=== PATIENT | male | born 1960 | race Hispanic/Latino ===

== ENCOUNTER 2018-01-11 10:39 | Emergency (ER) | payer OTHER ==
[2018-01-11 10:50] VITALS: BMI 27.3
[2018-01-11 10:56] VITALS: TEMP 97.6
[2018-01-11 11:37] LABS: BASO # 0.01 K/mm3 (0.0-2.0); BASO % 0.3 % (0.0-3.0); EOS # 0.1 (0.0-0.7); GRAN # 1.95 (1.4-6.5); GRAN % 56.2 % (50.0-68.0); HEMOGLOBIN 14.2 g/dL (14.0-18.0); LYMPH # 1.1 (1.2-3.4); LYMPH % 31.4 % (22.0-35.0); MEAN CELL VOLUME 100.3 fl (80.0-105.0); MEAN CORPUSCULAR HEMOGLOBIN 36.1 pg (25.0-35.0); MEAN PLATELET VOLUME 10.1 fl (7.0-11.0); MONO # 0.3 (0.1-0.6); MONO % 8.1 % (1.0-6.0); RBC 3.93 10^6/uL (3.5-6.1); RED CELL DISTRIBUTION WIDTH 14.4 % (11.5-14.5); WHITE BLOOD COUNT 3.5 10^3/ul (4.5-11.0)
[2018-01-11 11:44] LABS: ALB/GLOB RATIO 1.1 (1.1-1.8); ALBUMIN 3.5 g/dL (3.0-4.8); ALT/SGPT 55 U/L (7-56); AST/SGOT 56 U/L (17-59); BLOOD UREA NITROGEN 17 mg/dL (7-21); CALCIUM 9.3 mg/dL (8.4-10.5); GFR AFRICAN-AMERICAN > 60; GFR NON-AFRICAN AMERICAN > 60
[2018-01-11 11:45] LABS: ACETAMINOPHEN < 10.0 ug/ml (10.0-20.0); SALICYLATE < 1 mg/dL (2.0-20.0)
--- NOTE | 2018-01-11 12:10 | ED PDOC ---
Arrival/HPI - General Chief Complaint: Psychiatric Evaluation Time Seen by Provider: 01/11/18 11:07 Historian: Patient - History of Present Illness Narrative History of Present Illness (Text): 01/11/18 11:20 A 58 year old male, whose past medical history includes schizophrenia, is brought in from [facility] for aggressive and combative behavior towards staff. Patient has no physical complaints at this time. Patient denies any fever, cough , or any other complaints. PMD: Dr. Flores Past Medical History - Provider Review Nursing Documentation Reviewed: Yes - Cardiac Hx Cardiac Disorders: No - Pulmonary Hx Respiratory Disorders: No - Neurological Hx Seizures: Yes Other/Comment: encephalopathy, altered - HEENT Hx HEENT Disorder: No - Renal Hx Renal Disorder: No - Endocrine/Metabolic Hx Endocrine Disorders: No - Hematological/Oncological Hx Blood Disorders: Yes Other/Comment: chronic hepatitis - Integumentary Hx Dermatological Disorder: No - Musculoskeletal/Rheumatological Hx Musculoskeletal Disorders: No - Gastrointestinal Hx Gastrointestinal Disorders: No - Genitourinary/Gynecological Hx Genitourinary Disorders: No - Psychiatric Hx Psychophysiologic Disorder: Yes Hx Depression: Yes Hx Substance Use: No Other/Comment: schizoaffective Family/Social History - Physician Review Nursing Documentation Reviewed: Yes Family/Social History: No Known Family HX Smoking Status: Never Smoked Hx Alcohol Use: No Hx Substance Use: No Allergies/Home Meds Allergies/Adverse Reactions: Allergies No Known Allergies Allergy (Verified 01/11/18 10:50) Review of Systems - Physician Review All systems were reviewed & negative as marked: Yes - Review of Systems Constitutional: absent: Fevers Respiratory: absent: Cough Physical Exam Vital Signs Reviewed: Yes Vital Signs Temp Pulse Resp BP Pulse Ox 01/11/18 19:13 74 18 114/76 96 01/11/18 19:12 78 18 114/76 97 01/11/18 14:40 64 18 99/50 L 91 L 01/11/18 10:50 97.6 F 89 19 136/74 94 L 01/11/18 10:40 97.6 F 89 19 136/74 94 L Temperature: Afebrile Blood Pressure: Normal Pulse: Regular Respiratory Rate: Normal Appearance: Positive for: Well-Appearing Pain Distress: None Mental Status: Positive for: Agitated, other (combative and aggressive) - Systems Exam Head: Present: Atraumatic, Normocephalic Pupils: Present: PERRL Extroacular Muscles: Present: EOMI Conjunctiva: Present: Normal Mouth: Present: Moist Mucous Membranes Neck: Present: Normal Range of Motion Respiratory/Chest: Present: Clear to Auscultation, Good Air Exchange. No: Respiratory Distress, Accessory Muscle Use Cardiovascular: Present: Regular Rate and Rhythm, Normal S1, S2. No: Murmurs Abdomen: Present: Normal Bowel Sounds. No: Tenderness, Distention, Peritoneal Signs Back: Present: Normal Inspection Upper Extremity: Present: Normal Inspection. No: Cyanosis, Edema Lower Extremity: Present: Normal Inspection. No: Edema Neurological: Present: GCS=15, CN II-XII Intact, Speech Normal Skin: Present: Warm, Dry, Normal Color. No: Rashes Psychiatric: Present: Agitated Medical Decision Making ED Course and Treatment: 01/11/18 11:24 Impression: 58 year old male brought in for aggressive and combative behavior. Plan: -- EKG -- Chest X-ray -- Labs -- Urine Culture -- Haldol -- Ativan -- Urinalysis -- Reassess and disposition Progress Notes: 01/11/2018 12:18 Chest X-ray IMPRESSION: No active disease. Dictator: Gopal Kirk MD 01/11/18 13:30 Patient has agreed to be admitted to [facility]. Patient is currently medically cleared. EKG: Ordered, reviewed, and independently interpreted the EKG. Rate : 68 BPM Rhythm : NSR Interpretation : No ST-segment elevations or depressions, no T-wave inversions, normal intervals. Comparison : No previous EKG for comparison. - Lab Interpretations Lab Results: 01/11/18 11:20 01/11/18 11:20 Lab Results 01/11/18 13:00: Urine Opiates Screen Negative, Urine Methadone Screen Negative, Ur Barbiturates Screen Negative, Ur Phencyclidine Scrn Negative, Ur Amphetamines Screen Negative, U Benzodiazepines Scrn Negative, U Oth Cocaine Metabols Negative, U Cannabinoids Screen Negative 01/11/18 13:00: Urine Color Yellow, Urine Appearance Clear, Urine pH 6.0, Ur Specific [place] 1.025, Urine Protein Negative, Urine Glucose (UA) Negative, Urine Ketones Trace H, Urine Blood Negative, Urine Nitrate Negative, Urine Bilirubin Negative, Urine Urobilinogen 2.0 H, Ur Leukocyte Esterase Negative 01/11/18 12:39: Ammonia 68 H 01/11/18 11:20: Alcohol, Quantitative < 10 01/11/18 11:20: Salicylates < 1 L, Acetaminophen < 10.0 L 01/11/18 11:20: Sodium 139, Potassium 3.9, Chloride 108 H, Carbon Dioxide 23, Anion Gap 13, BUN 17, Creatinine 0.5 L, Est GFR ( Amer) > 60, Est GFR ( Non-Af Amer) > 60, Random Glucose 85, Calcium 9.3, Total Bilirubin 1.5 H, AST 56 , ALT 55, Alkaline Phosphatase 101, Total Protein 6.8, Albumin 3.5, Globulin 3.3 , Albumin/Globulin Ratio 1.1 01/11/18 11:20: WBC 3.5 L, RBC 3.93, Hgb 14.2, Hct 39.4 L, MCV 100.3, MCH 36.1 H , MCHC 36.0, RDW 14.4, Plt Count 93 L, MPV 10.1, Gran % 56.2, Lymph % (Auto) 31.4, [place] % (Auto) 8.1 H, Eos % (Auto) 4.0, Baso % (Auto) 0.3, Gran # 1.95, Lymph # (Auto) 1.1 L, [place] # (Auto) 0.3, Eos # (Auto) 0.1, Baso # (Auto) 0.01 I have reviewed the lab results: Yes - RAD Interpretation Radiology Orders: 01/11/18 11:24 CHEST PORTABLE [RAD] Stat - Medication Orders Current Medication Orders: Discontinued Medications Haloperidol Lactate (Haldol) 2.5 mg IM STAT STA PRN Reason: Protocol Stop: 01/11/18 11:53 Last Admin: 01/11/18 12:06 Dose: 2.5 mg IM Administration Charges Document 01/11/18 12:06 SRE (Rec: 01/11/18 12:06 SRE [id number]) Injection Site MAR Injection Site Left Deltoid Charges for Administration # of IM Administrations 1 Haloperidol Lactate (Haldol) 2.5 mg IM STAT STA PRN Reason: Protocol Stop: 01/11/18 12:19 Last Admin: 01/11/18 12:26 Dose: 2.5 mg IM Administration Charges Document 01/11/18 12:26 SRE (Rec: 01/11/18 12:26 SRE [id number]) Injection Site MAR Injection Site Right Gluteus Geovanny Charges for Administration # of IM Administrations 1 Lorazepam (Ativan) 2 mg IM STAT STA PRN Reason: Protocol Stop: 01/11/18 12:19 Last Admin: 01/11/18 12:26 Dose: 2 mg IM Administration Charges Document 01/11/18 12:26 SRE (Rec: 01/11/18 12:26 SRE [id number]) Injection Site MAR Injection Site Right Deltoid Charges for Administration # of IM Administrations 1 - Transfer of Care Patient signed out to Dr:: Kori Other: awaiting [facility] screening - Scribe Statement The provider has reviewed the documentation as recorded by the Jordonibjaziel Neville Provider Scribe Attestation: All medical record entries made by the Scribe were at my direction and personally dictated by me. I have reviewed the chart and agree that the record accurately reflects my personal performance of the history, physical exam, medical decision making, and the department course for this patient. I have also personally directed, reviewed, and agree with the discharge instructions and disposition. Disposition/Present on Arrival - Present on Arrival Any Indicators Present on Arrival: No History of DVT/PE: No History of Uncontrolled Diabetes: No Urinary Catheter: No History of Decub. Ulcer: No History Surgical Site Infection Following: None - Disposition Have Diagnosis and Disposition been Completed?: Yes Diagnosis: Schizophrenia Disposition Time: 23:00 Condition: STABLE Referrals: Glenn Flores DO [Primary Care Provider] - Follow up with primary Forms: [employer] (Khmer)
--- NOTE | 2018-01-11 12:20 | RAD ---
HISTORY: r/o infiltrate COMPARISON: No prior. FINDINGS: LUNGS: No active pulmonary disease. PLEURA: No significant pleural effusion identified, no pneumothorax apparent. CARDIOVASCULAR: Normal. OSSEOUS STRUCTURES: No significant abnormalities. VISUALIZED UPPER ABDOMEN: Normal. OTHER FINDINGS: None. IMPRESSION: No active disease.
[2018-01-11 13:22] LABS: URINE BILIRUBIN NEGATIVE (NEGATIVE); URINE BLOOD NEGATIVE (NEGATIVE); URINE GLUCOSE (UA) NEGATIVE (NEGATIVE); URINE LEUKOCYTE ESTERASE NEGATIVE Leu/uL (NEGATIVE); URINE PROTEIN NEGATIVE mg/dL (<30 mg/dL)
[2018-01-11 13:23] LABS: URINE APPEARANCE CLEAR (CLEAR); URINE COLOR YELLOW (YELLOW)
[2018-01-11 13:42] LABS: BENZODIAZEPINES, UR NEGATIVE (NEGATIVE)
[2018-01-11 13:51] LABS: BARBITURATES, UR NEGATIVE (NEGATIVE); OPIATES, UR NEGATIVE (NEGATIVE); PHENCYCLIDINE, UR NEGATIVE (NEGATIVE)
--- NOTE | 2018-01-12 01:19 | ED PDOC ---
Physical Exam - Physical Exam Narrative Physical Exam (Text): Patient re-evaluated by PES and [facility] screener, deemed safe for discharge back to [place]. Vital Signs Reviewed: Yes Vital Signs Temp Pulse Resp BP Pulse Ox 01/12/18 04:40 76 19 127/70 97 01/12/18 02:46 80 18 120/85 99 01/11/18 19:13 74 18 114/76 96 01/11/18 19:12 78 18 114/76 97 01/11/18 14:40 64 18 99/50 L 91 L 01/11/18 10:50 97.6 F 89 19 136/74 94 L 01/11/18 10:40 97.6 F 89 19 136/74 94 L Temperature: Afebrile Blood Pressure: Normal Pulse: Regular Respiratory Rate: Normal Appearance: Positive for: Well-Appearing, Non-Toxic, Comfortable Pain Distress: None Mental Status: Positive for: Alert and Oriented X 3 Medical Decision Making ED Course and Treatment: 01/11/18 10:40: Patient endorsed to me by Dr. Christianson. Pending PES reevaluation, reassessment and disposition: 01/12/18 01:18: PES reevaluated patient. - Lab Interpretations Lab Results: 01/11/18 11:20 01/11/18 11:20 Lab Results 01/11/18 13:00: Urine Opiates Screen Negative, Urine Methadone Screen Negative, Ur Barbiturates Screen Negative, Ur Phencyclidine Scrn Negative, Ur Amphetamines Screen Negative, U Benzodiazepines Scrn Negative, U Oth Cocaine Metabols Negative, U Cannabinoids Screen Negative 01/11/18 13:00: Urine Color Yellow, Urine Appearance Clear, Urine pH 6.0, Ur Specific [place] 1.025, Urine Protein Negative, Urine Glucose (UA) Negative, Urine Ketones Trace H, Urine Blood Negative, Urine Nitrate Negative, Urine Bilirubin Negative, Urine Urobilinogen 2.0 H, Ur Leukocyte Esterase Negative 01/11/18 12:39: Ammonia 68 H 01/11/18 11:20: Alcohol, Quantitative < 10 01/11/18 11:20: Salicylates < 1 L, Acetaminophen < 10.0 L 01/11/18 11:20: Sodium 139, Potassium 3.9, Chloride 108 H, Carbon Dioxide 23, Anion Gap 13, BUN 17, Creatinine 0.5 L, Est GFR ( Amer) > 60, Est GFR ( Non-Af Amer) > 60, Random Glucose 85, Calcium 9.3, Total Bilirubin 1.5 H, AST 56 , ALT 55, Alkaline Phosphatase 101, Total Protein 6.8, Albumin 3.5, Globulin 3.3 , Albumin/Globulin Ratio 1.1 01/11/18 11:20: WBC 3.5 L, RBC 3.93, Hgb 14.2, Hct 39.4 L, MCV 100.3, MCH 36.1 H , MCHC 36.0, RDW 14.4, Plt Count 93 L, MPV 10.1, Gran % 56.2, Lymph % (Auto) 31.4, [place] % (Auto) 8.1 H, Eos % (Auto) 4.0, Baso % (Auto) 0.3, Gran # 1.95, Lymph # (Auto) 1.1 L, [place] # (Auto) 0.3, Eos # (Auto) 0.1, Baso # (Auto) 0.01 - RAD Interpretation Radiology Orders: 01/11/18 11:24 CHEST PORTABLE [RAD] Stat - Medication Orders Current Medication Orders: Discontinued Medications Haloperidol Lactate (Haldol) 2.5 mg IM STAT STA PRN Reason: Protocol Stop: 01/11/18 11:53 Last Admin: 01/11/18 12:06 Dose: 2.5 mg IM Administration Charges Document 01/11/18 12:06 SRE (Rec: 01/11/18 12:06 SRE [id number]) Injection Site MAR Injection Site Left Deltoid Charges for Administration # of IM Administrations 1 Haloperidol Lactate (Haldol) 2.5 mg IM STAT STA PRN Reason: Protocol Stop: 01/11/18 12:19 Last Admin: 01/11/18 12:26 Dose: 2.5 mg IM Administration Charges Document 01/11/18 12:26 SRE (Rec: 01/11/18 12:26 SRE [id number]) Injection Site MAR Injection Site Right Gluteus Geovanny Charges for Administration # of IM Administrations 1 Lorazepam (Ativan) 2 mg IM STAT STA PRN Reason: Protocol Stop: 01/11/18 12:19 Last Admin: 01/11/18 12:26 Dose: 2 mg IM Administration Charges Document 01/11/18 12:26 SRE (Rec: 01/11/18 12:26 SRE [id number]) Injection Site MAR Injection Site Right Deltoid Charges for Administration # of IM Administrations 1 - Scribe Statement The provider has reviewed the documentation as recorded by the Scribe Kim Saeed Provider Scribe Attestation: All medical record entries made by the Scribe were at my direction and personally dictated by me. I have reviewed the chart and agree that the record accurately reflects my personal performance of the history, physical exam, medical decision making, and the department course for this patient. I have also personally directed, reviewed, and agree with the discharge instructions and disposition. Disposition/Present on Arrival - Present on Arrival Any Indicators Present on Arrival: No History of DVT/PE: No History of Uncontrolled Diabetes: No Urinary Catheter: No History of Decub. Ulcer: No History Surgical Site Infection Following: None - Disposition Have Diagnosis and Disposition been Completed?: Yes Diagnosis: Schizophrenia Disposition: TRANSF TO SNF Disposition Time: 04:40 Patient Plan: Discharge Condition: STABLE Referrals: Glenn Flores DO [Primary Care Provider] - Follow up with primary Forms: [employer] (Italian)
[2018-01-12 04:50] VITALS: BP 127/70; PULSE 76; RESP 19; O2SAT 97
--- NOTE | 2018-01-12 10:27 | CARD ---
APPROVED REPORT EKG Measurement Heart [id number] [id number] <Conclusion> Normal sinus rhythm Normal ECG
== END 2018-01-12 04:40 ==
LOC: ED 10:39 → MERGE 10:39 → ED 01-12 04:40
DX: F20.9 Schizophrenia, unspecified (principal)
CPT/HCPCS: 71045; 80053; 80320; 80324; 80329; 80345; 80346; 80349; 80353; 80358; 80361; 81003; 82140; 83992; 85025; 87086; 90791; 93005; 96372; 99285; J1630; J2060

== ENCOUNTER 2018-01-16 11:13 | Inpatient (IN) | payer MEDICAID, OTHER ==
[2018-01-16 11:15] VITALS: BMI 27.3
--- NOTE | 2018-01-16 11:55 | ED PDOC ---
Arrival/HPI - General Chief Complaint: Psychiatric Evaluation Time Seen by Provider: 01/16/18 11:50 Historian: Patient, EMS - History of Present Illness Narrative History of Present Illness (Text): 01/16/18 11:52 pt p/w + anger reaction while at [facility]? today, prior to ED arrival; pt was breaking dishes/throwing thing; pt states he was not trying to hurt anyone, pt states he was angry that his coffee was cold and he wasnt been taking care of while at the [facility]; pt states no fever/chills/sweats, no cp/ sob/palpitations, no abd pain, no n/v, no numbness/tingling, no urinary/bowel changes, no rashes, no gross bleeding, no fall/trauma/sick contact, no travel; pt is here for further eval; pt's without other complaints. pt denied SI/HI, pt denied hallucinations - visual/tactile/auditory Time/Duration: Prior to Arrival Symptom Onset: Sudden Symptom Course: Improving Context: Home Past Medical History - Provider Review Nursing Documentation Reviewed: Yes - Travel History Have you recently traveled outside [place] w/in the past 3 mons?: No - Past History Past History: No Previous - Infectious Disease Hx of Infectious Diseases: None - Cardiac Hx Cardiac Disorders: Yes Hx Hypertension: Yes - Pulmonary Hx Respiratory Disorders: Yes Hx Chronic Obstructive Pulmonary Disease (COPD): Yes - Neurological Hx Neurological Disorder: Yes Hx Seizures: Yes Other/Comment: ENCEPALOPATHY, AMS - HEENT Hx HEENT Disorder: No - Renal Hx Renal Disorder: No - Endocrine/Metabolic Hx Endocrine Disorders: No - Hematological/Oncological Hx Blood Disorders: Yes Other/Comment: HEPATITIS - Integumentary Hx Dermatological Disorder: No - Musculoskeletal/Rheumatological Hx Musculoskeletal Disorders: Yes Hx Fractures: Yes (L leg) - Gastrointestinal Hx Gastrointestinal Disorders: No - Genitourinary/Gynecological Hx Genitourinary Disorders: No - Psychiatric Hx Psychophysiologic Disorder: Yes Hx Depression: Yes Hx Substance Use: No Other/Comment: SCHIZOAFFECTIVE - Surgical History Hx Orthopedic Surgery: Yes (L leg) - Anesthesia Hx Anesthesia: Yes Family/Social History - Physician Review Nursing Documentation Reviewed: Yes Family/Social History: No Known Family HX Smoking Status: Heavy Smoker > 10 Cigarettes Daily Hx Alcohol Use: No Hx Substance Use: No Hx Substance Use Treatment: No Allergies/Home Meds Allergies/Adverse Reactions: Allergies No Known Allergies Allergy (Unverified 01/16/18 11:18) Home Medications: Home Meds Medication Instructions Recorded Confirmed Acetaminophen [Tylenol 325mg tab] 325 mg PO Q4 PRN 01/02/18 01/16/18 OXcarbazepine [Trileptal] 300 mg PO BID 01/02/18 01/16/18 QUEtiapine [SEROquel] 200 mg PO HS 01/02/18 01/02/18 Sertraline [Zoloft] 50 mg PO DAILY 01/02/18 01/16/18 levETIRAcetam [Keppra] 500 mg PO BID 01/02/18 01/16/18 traZODone [trazODONE HYDROCHLORIDE] 50 mg PO HS 01/02/18 01/16/18 Bisacodyl [Dulcolax] 10 mg PA PRN PRN 01/16/18 01/16/18 Lactulose 30 ml PO DAILY PRN 01/16/18 01/16/18 QUEtiapine [Seroquel] 100 mg PO DAILY 01/16/18 01/16/18 Rifaximin [Xifaxan] 550 mg PO BID 01/16/18 01/16/18 Review of Systems - Review of Systems Constitutional: Normal Eyes: Normal ENT: Normal Respiratory: Normal Cardiovascular: Normal Gastrointestinal: Normal Genitourinary Male: Normal Musculoskeletal: Normal Skin: Normal Neurological: Normal Endocrine: Normal Hemo/Lymphatic: Normal Psychiatric: Normal Physical Exam Vital Signs Reviewed: Yes Vital Signs Temp Pulse Resp BP Pulse Ox 01/16/18 11:30 98 F 68 18 105/64 97 Temperature: Afebrile Blood Pressure: Normal Pulse: Regular Respiratory Rate: Normal Appearance: Positive for: Well-Appearing, Non-Toxic, Uncomfortable, Other (well nourished male, comfortable, NAD, cooperative, alert/awake, GCS = 15, oriented x 2 (not to date/time), follows command with ease) Pain Distress: None Mental Status: Positive for: other (alert and awake, oriented x 2 (not to date/ time)) - Systems Exam Head: Present: Atraumatic, Normocephalic, Other (mild bi-temporal wasting) Pupils: Present: PERRL, Other (no nystagmus, no photophobia, sclera anicteric, visual field intact b/l) Extroacular Muscles: Present: EOMI Conjunctiva: Present: Normal Ears: Present: Normal Mouth: Present: Moist Mucous Membranes, Other (poor dentitions, no drooling/ stridor, no exudate/lesions) Pharnyx: Present: Normal Nose (External): Present: Atraumatic Nose (Internal): Present: Normal Inspection Neck: Present: Normal Range of Motion, Trachea Midline, Other (intact ROM, no midline tenderness, no nuchal rigidity, no menigneal signs). No: MIDLINE TENDERNESS Respiratory/Chest: Present: Clear to Auscultation, Good Air Exchange, Other ( CTA b/l, no w/r/r, no tachypenia, no accessory muscle use noted; coarse breath sounds bibasiliar). No: Respiratory Distress, Accessory Muscle Use Cardiovascular: Present: Regular Rate and Rhythm, Normal S1, S2. No: Murmurs Abdomen: Present: Normal Bowel Sounds, Other (well nourished male, no focal tenderness, no masses/rebound/guarding/rigidity, no cummins's sign, no mcburney' s point tenderness). No: Tenderness, Distention Back: Present: Normal Inspection. No: CVA Tenderness, Midline Tenderness Upper Extremity: Present: Normal Inspection, Normal ROM, NORMAL PULSES, Neurovascularly Intact, Capillary Refill < 2s Lower Extremity: Present: Normal Inspection, NORMAL PULSES, Normal ROM, Capillary Refill < 2 s Neurological: Present: GCS=15, CN II-XII Intact, Speech Normal, Other (no facial asymmetries, no new slurr speech) Skin: Present: Warm, Normal Color, Other (cap refill ~ 1sec, no ulcerations, no petechiae, no rashes) Psychiatric: Present: Alert Medical Decision Making ED Course and Treatment: 01/16/18 11:58 Impression: anger reaction, r/o psych d/o i have consider all the differential diagnosis regarding pt's chief medical complaints/clinical findings, including but are not limited to: anger reaction? A/P: anger reaction - labs - xray - PES eval - observe - supportive care 01/16/18 12:44 pt is currently comfortable, NAD pt remained no SI/HI, no hallucinations pt IS MEDICALLY CLEARED FOR PSYCH/PES EVAL Re-evaluation Time: 12:44 Reassessment Condition: Improved - Lab Interpretations Lab Results: 01/16/18 12:00 01/16/18 12:00 Lab Results 01/16/18 12:30: Urine Opiates Screen Negative, Urine Methadone Screen Negative, Ur Barbiturates Screen Negative, Ur Phencyclidine Scrn Negative, Ur Amphetamines Screen Negative, U Benzodiazepines Scrn Negative, U Oth Cocaine Metabols Negative, U Cannabinoids Screen Negative 01/16/18 12:30: Urine Color Yellow, Urine Appearance Clear, Urine pH 6.5, Ur Specific [place] 1.015, Urine Protein Negative, Urine Glucose (UA) Negative, Urine Ketones Negative, Urine Blood Negative, Urine Nitrate Negative, Urine Bilirubin Negative, Urine Urobilinogen 4.0 H, Ur Leukocyte Esterase Negative 01/16/18 12:00: Alcohol, Quantitative < 10 01/16/18 12:00: Salicylates < 1 L, Acetaminophen < 10.0 L 01/16/18 12:00: Sodium 143, Potassium 3.7, Chloride 110 H, Carbon Dioxide 26, Anion Gap 11, BUN 11, Creatinine 0.5 L, Est GFR ( Amer) > 60, Est GFR ( Non-Af Amer) > 60, Random Glucose 81, Calcium 8.9, Total Bilirubin 1.3, AST 50, ALT 49, Alkaline Phosphatase 90, Total Protein 5.6 L, Albumin 2.9 L, Globulin 2.7, Albumin/Globulin Ratio 1.0 L 01/16/18 12:00: WBC 4.0 L, RBC 3.41 L, Hgb 12.4 L, Hct 34.1 L, MCV 100.0, MCH 36.4 H, MCHC 36.4, RDW 14.2, Plt Count 96 L, MPV 10.5, Gran % 48.6 L, Lymph % ( Auto) 36.6 H, [place] % (Auto) 11.4 H, Eos % (Auto) 3.2, Baso % (Auto) 0.2, Gran # 1.96, Lymph # (Auto) 1.5, [place] # (Auto) 0.5, Eos # (Auto) 0.1, Baso # (Auto) 0.01 I have reviewed the lab results: Yes Interpretation: All labs normal - RAD Interpretation Narrative RAD Interpretations (Text): 01/16/18 13:27 HISTORY: Medical clearance. COMPARISON: 01/11/2018 FINDINGS: LUNGS: No active pulmonary disease. PLEURA: No significant pleural effusion identified, no pneumothorax apparent. CARDIOVASCULAR: No radiographic findings to suggest acute or significant cardiovascular disease. OSSEOUS STRUCTURES: No significant abnormalities. VISUALIZED UPPER ABDOMEN: Normal. OTHER FINDINGS: None. IMPRESSION: No active disease. No significant interval change compared to the prior examination(s). Radiology Orders: 01/16/18 11:51 CHEST PORTABLE [RAD] Stat 01/16/18 12:22 Chest X-ray Creator : Yogesh Ward MD IMPRESSION: No active disease. No significant interval change compared to the prior examination(s). Health Science Specialist: Radiologist - EKG Interpretation EKG Interpretation (Text): 01/16/18 12:45 NSR at 65 bpm, normal axis, no ectopy, no st-t changes, NORMAL EKG; unchanged compare with old ekg 12/3017 Interpreted by ED Physician: Yes Type: 12 lead EKG Comparison: Similar to previous EKG Disposition/Present on Arrival - Present on Arrival Any Indicators Present on Arrival: No History of DVT/PE: No History of Uncontrolled Diabetes: No Urinary Catheter: No History of Decub. Ulcer: No History Surgical Site Infection Following: None - Disposition Have Diagnosis and Disposition been Completed?: Yes Diagnosis: Schizoaffective disorder, Anger reaction Disposition: HOSPITALIZED Disposition Time: 13:28 Patient Plan: Admission Condition: STABLE Referrals: Glenn Flores DO [Primary Care Provider] - Follow up with primary Forms: [employer] (Mexican)
[2018-01-16 12:19] LABS: BASO # 0.01 K/mm3 (0.0-2.0); BASO % 0.2 % (0.0-3.0); EOS # 0.1 (0.0-0.7); EOS % 3.2 % (1.5-5.0); GRAN # 1.96 (1.4-6.5); GRAN % 48.6 % (50.0-68.0); HEMOGLOBIN 12.4 g/dL (14.0-18.0); LYMPH # 1.5 (1.2-3.4); LYMPH % 36.6 % (22.0-35.0); MEAN CORPUSCULAR HEMOGLOBIN 36.4 pg (25.0-35.0); MEAN CORPUSCULAR HGB CONC 36.4 g/dl (31.0-37.0); MEAN PLATELET VOLUME 10.5 fl (7.0-11.0); MONO # 0.5 (0.1-0.6); MONO % 11.4 % (1.0-6.0); RBC 3.41 10^6/uL (3.5-6.1); RED CELL DISTRIBUTION WIDTH 14.2 % (11.5-14.5)
--- NOTE | 2018-01-16 12:20 | RAD ---
HISTORY: Medical clearance. COMPARISON: 01/11/2018 FINDINGS: LUNGS: No active pulmonary disease. PLEURA: No significant pleural effusion identified, no pneumothorax apparent. CARDIOVASCULAR: No radiographic findings to suggest acute or significant cardiovascular disease. OSSEOUS STRUCTURES: No significant abnormalities. VISUALIZED UPPER ABDOMEN: Normal. OTHER FINDINGS: None. IMPRESSION: No active disease. No significant interval change compared to the prior examination(s).
[2018-01-16 12:23] LABS: ACETAMINOPHEN < 10.0 ug/ml (10.0-20.0); SALICYLATE < 1 mg/dL (2.0-20.0)
[2018-01-16 12:24] LABS: ALBUMIN 2.9 g/dL (3.0-4.8); ALT/SGPT 49 U/L (7-56); AST/SGOT 50 U/L (17-59); BLOOD UREA NITROGEN 11 mg/dL (7-21); CALCIUM 8.9 mg/dL (8.4-10.5); GFR AFRICAN-AMERICAN > 60; GFR NON-AFRICAN AMERICAN > 60
[2018-01-16 12:45] LABS: PH,URINE 6.5 (4.7-8.0); URINE APPEARANCE CLEAR (CLEAR); URINE BILIRUBIN NEGATIVE (NEGATIVE); URINE BLOOD NEGATIVE (NEGATIVE); URINE COLOR YELLOW (YELLOW); URINE GLUCOSE (UA) NEGATIVE (NEGATIVE); URINE LEUKOCYTE ESTERASE NEGATIVE Leu/uL (NEGATIVE); URINE PROTEIN NEGATIVE mg/dL (<30 mg/dL)
[2018-01-16 12:57] LABS: BENZODIAZEPINES, UR NEGATIVE (NEGATIVE)
[2018-01-16 13:13] LABS: BARBITURATES, UR NEGATIVE (NEGATIVE); OPIATES, UR NEGATIVE (NEGATIVE); PHENCYCLIDINE, UR NEGATIVE (NEGATIVE)
[2018-01-16] MEDS ORDERED: Alum-Mag Hydrox-Simethicone Susp (30 mL) PO PRN (15:03)
[2018-01-16] MEDS ORDERED: Magnesium Hydroxide Susp 30 ml UD PO PRN (15:03)
[2018-01-16 17:04] VITALS: O2SAT 96
--- NOTE | 2018-01-16 17:19 | CARD ---
APPROVED REPORT EKG Measurement Heart [id number] <Conclusion> Normal sinus rhythm Normal ECG
[2018-01-16] MEDS: Divalproex 250 mg DR (BID formulation) PO SCH (17:44)
[2018-01-17 07:56] LABS: GLUCOSE,FASTING 75 mg/dL (65-110); HDL CHOLESTEROL 50 mg/dL (29-60)
[2018-01-17 08:07] LABS: LDL CHOLESTEROL 33 mg/dL (0-129)
[2018-01-17 08:12] LABS: FREE T4 0.85 ng/dL (0.78-2.19)
[2018-01-17] MEDS ORDERED: Divalproex 250 mg DR (BID formulation) PO STA (12:52)
--- NOTE | 2018-01-17 13:19 | PCM.PSYCH ---
Initial Psychiatric Evaluation - Initial Psychiatric Evaluation Type of Admission: Voluntary Legal Status: Capacity (Patient has capacity to sign consent for tx) Chief Complaint (in patient's own words): "he said f...k you and f...k your mother and f...k your father, I was agitated...." "they have to do what I said them to do" Patient's Reaction to Hospitalization: [place] was [place] the [place] for evaluation of disinhibited behavior, inappropriate sexual behavior in [place], agitation, poor impulse control. History of Present Illness and Precipitating Events: Shortly pt is 58yo male with reported h/o schizoaffective disorder, denied previous psychiatric admissions, denied h/o suicidal attempts, pt was transferred from the [facility] for evaluation of agitated, aggressive, inappropriate behavior, pt was sexually disinhibited, was trying to kiss other consumers with no permission, was making sexual remarks, was breaking things, was not manageable in the [place]. pt requires meds adjustment, observation. pt was seen and examined today at the tx team meeting room with therapist. as per report pt was making sexual remarks and using profanities, pt also was making racial remarks. 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 pt presented with acceptable personal hygiene, fair ADLs, walks independently. pt was oriented in self, date, but was not aware of the name of the hospital, but aware that he is in the hospital. pt obviously has difficulties to concentrate and stay focused, when was asked what brought pt to the hospital pt said "I was agitated, another kimberly said that f...k you and f...k your mother and f...k your father!", pt then said "I wanted to kill him", when pt was asked when it happened pt replied "5years ago", pt was not able to answer how it is related to the question he was asked. pt also was making sexual and racist remarks, but as per staff pt did not have any agitation or aggression. pt denied v/a/t hallucinations, but pt is guarded. pt denied feeling depressed, denied thoughts of harming self or others. pt reported to have traumatic events in the past "I was in nursing home so many times, too many to count". pt denied any flashbacks, reliving of situation. pt was grandiose, manic, sexually preoccupied. Past psych h/o: Pt. [facility] in psych. [facility] Dr. Aranda. No recent changes or adjustments in medications per [facility]. Pt. did not get a psych eval or see psychiatrist this week either. Pt. is a sub acute resident. 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 will be accepted back to the facility after speaking to DO Brittany from [facility]. Prior to [facility] admission pt. was homeless and referred by [facility]. Medical h/o: chronic hepatitis, htn, encephalopathy and seizure d/o. pt reported smoking 3-4 cigarettes, counseling provided, pt requested to be on nicotine patch. Family h/o: pt is not aware. 01/16/18 12:00 01/16/18 12:00 Lab Results 01/17/18 07:00: Free T4 0.85, TSH 3rd Generation 0.65 01/17/18 07:00: Fasting Glucose 75, Triglycerides 30 L, Cholesterol 96 L, LDL Cholesterol Direct 33, HDL Cholesterol 50 01/16/18 12:30: Urine Opiates Screen Negative, Urine Methadone Screen Negative, Ur Barbiturates Screen Negative, Ur Phencyclidine Scrn Negative, Ur Amphetamines Screen Negative, U Benzodiazepines Scrn Negative, U Oth Cocaine Metabols Negative, U Cannabinoids Screen Negative 01/16/18 12:30: Urine Color Yellow, Urine Appearance Clear, Urine pH 6.5, Ur Specific [place] 1.015, Urine Protein Negative, Urine Glucose (UA) Negative, Urine Ketones Negative, Urine Blood Negative, Urine Nitrate Negative, Urine Bilirubin Negative, Urine Urobilinogen 4.0 H, Ur Leukocyte Esterase Negative 01/16/18 12:00: Alcohol, Quantitative < 10 01/16/18 12:00: Salicylates < 1 L, Acetaminophen < 10.0 L 01/16/18 12:00: Sodium 143, Potassium 3.7, Chloride 110 H, Carbon Dioxide 26, Anion Gap 11, BUN 11, Creatinine 0.5 L, Est GFR ( Amer) > 60, Est GFR ( Non-Af Amer) > 60, Random Glucose 81, Calcium 8.9, Total Bilirubin 1.3, AST 50, ALT 49, Alkaline Phosphatase 90, Total Protein 5.6 L, Albumin 2.9 L, Globulin 2.7, Albumin/Globulin Ratio 1.0 L 01/16/18 12:00: WBC 4.0 L, RBC 3.41 L, Hgb 12.4 L, Hct 34.1 L, MCV 100.0, MCH 36.4 H, MCHC 36.4, RDW 14.2, Plt Count 96 L, MPV 10.5, Gran % 48.6 L, Lymph % ( Auto) 36.6 H, [place] % (Auto) 11.4 H, Eos % (Auto) 3.2, Baso % (Auto) 0.2, Gran # 1.96, Lymph # (Auto) 1.5, [place] # (Auto) 0.5, Eos # (Auto) 0.1, Baso # (Auto) 0.01 Vital Signs Temp Pulse Resp BP Pulse Ox 01/17/18 07:29 97.5 F L 63 20 104/68 01/16/18 16:00 98.1 F 69 16 118/71 96 01/16/18 14:17 98 F 60 18 110/60 98 01/16/18 13:00 64 16 110/65 98 01/16/18 11:30 98 F 68 18 105/64 97 Current Medications: Active Medications Generic Name Dose Route Start Last Admin Trade Name Freq PRN Reason Stop Dose Admin Acetaminophen 650 mg 01/16/18 15:03 Tylenol 325mg Tab PO Q4 PRN Pain, Mild (1-3) Al Hydrox/Mg Hydrox/Simethicone 30 ml 01/16/18 15:03 Maalox Plus 30 Ml PO DAILY PRN Upset Stomach Alprazolam 0.5 mg 01/16/18 18:01 01/17/18 10:54 Xanax PO 0.5 mg TID CAROL Administration Protocol Divalproex Sodium 500 mg 01/17/18 22:00 Jana Baig(*Bid*) PO HS CAROL Divalproex Sodium 250 mg 01/18/18 08:00 Jana Baig (*Bid*) PO DAILY CAROL Protocol Lactulose 10 gm 01/16/18 16:49 Enulose PO DAILY PRN Constipation Levetiracetam 500 mg 01/16/18 17:00 01/17/18 10:54 Keppra PO 500 mg BID CAROL Administration Lorazepam 1 mg 01/16/18 17:02 Ativan IM TID PRN Anxiety Protocol Magnesium Hydroxide 30 ml 01/16/18 15:03 Milk Of Magnesia PO DAILY PRN Constipation Oxcarbazepine 300 mg 01/16/18 17:00 01/17/18 10:54 Trileptal PO 300 mg BID CAROL Administration Protocol Quetiapine Fumarate 300 mg 01/17/18 22:00 Seroquel PO HS CAROL Protocol Quetiapine Fumarate 200 mg 01/18/18 08:00 Seroquel PO DAILY CAROL Protocol Rifaximin 550 mg 01/17/18 08:00 Xifaxan PO BID CAROL Protocol Trazodone HCl 50 mg 01/16/18 22:00 01/16/18 22:22 Desyrel PO 50 mg HS CAROL Administration Ziprasidone 10 mg 01/16/18 17:02 Geodon Inj IM BID PRN Agitation Protocol pt missed am dose of meds stat doses given Past Psychiatric History - Past Psychiatric History Previous Treatment History: None Prior Professional Help: see HPI Prior Psychiatric Treatment: see HPI At what hospital: see HPI Duration: see HPI Nature of Treatment: see HPI Explanation of prior treatment: see HPI History of Abuse: see HPI when pt was incarcerated History of ETOH/Drug Use: see HPI History of Family Illness: see HPI Pertinent Medical Hx (Current Medical&Sleep Prob, Allergies): Allergies Allergy/AdvReac Type Severity Reaction Status Date / Time No Known Allergies Allergy Verified 01/16/18 17:09 Acetaminophen [Tylenol 325mg tab] 325 mg PO Q4 PRN 01/02/18 OXcarbazepine [Trileptal] 300 mg PO BID 01/02/18 QUEtiapine [SEROquel] 200 mg PO HS 01/02/18 Sertraline [Zoloft] 50 mg PO DAILY 01/02/18 levETIRAcetam [Keppra] 500 mg PO BID 01/02/18 traZODone [trazODONE HYDROCHLORIDE] 50 mg PO HS 01/02/18 Bisacodyl [Dulcolax] 10 mg RI PRN PRN 01/16/18 Lactulose 30 ml PO DAILY PRN 01/16/18 QUEtiapine [Seroquel] 100 mg PO DAILY 01/16/18 Rifaximin [Xifaxan] 550 mg PO BID 01/16/18 Review of Systems - Review of Systems Systems not reviewed;Unavailable: Acuity of Condition - EENT Eyes: As Per HPI Ears: As Per HPI Nose/Mouth/Throat: As Per HPI - Cardiovascular Cardiovascular: As Per HPI - Respiratory Respiratory: As Per HPI - Gastrointestinal Gastrointestinal: As Per HPI - Genitourinary Genitourinary: As Per HPI - Reproductive: Male Reproductive:Male: As Per HPI - Musculoskeletal Musculoskeletal: As Par HPI - Integumentary Integumentary: As Per HPI - Neurological Neurological: As Per HPI - Psychiatric Psychiatric: As Per HPI - Endocrine Endocrine: As Per HPI - Hematologic/Lymphatic Hematologic: As Per HPI Mental Status Examination - Personal Presentation Personal Presentation: Looks older than stated age - Affect Affect: Flat (and irritable) - Motor Activity Motor Activity: Calm - Reliability in Providing Information Reliability in Providing Information: Poor, due to alteration in thoughts, Poor , due to altered mood, Poor, due to cognitve impairment - Speech Speech: Disorganized, Tangential - Mood Mood: Other ("I am fine") - Formal Thought Process Formal Thought Process: Delusions (of grandor) - Hallucinations/Delusions Delusions: Persecution - Obsessions/Compulsions Obsessions: None Compulsions: None - Cognitive Functions Orientation: Person, Situation, Time Sensorium: Alert Attention/Concentration: Easily distracted Estimate of Intelligence: Average Judgement: Intact, as evidence by: Insight regarding need for hospitalization - Risk Risk: Elopement, Self-mutilation, Diminished functioning - Strength & Assets Inventory Strength & Assets Inventory: Cooperative, Other (no h/o suicidal attempts) - Limitations Limitations: Other (pt was homeless, h/o mental illness. ) DSM 5 DX - DSM 5 DSM 5 Diagnosis: as per h/o schizoaffective disorder (most likely bipolar type) r/o frontotemporal dementia - Recommended/Plan of Treatment Treatment Recommendations and Plan of Treatment: milieu/structure/supportive therapy OXcarbazepine [Trileptal] 300 mg PO BID will be continued QUEtiapine [SEROquel] 100mg po am and 200 mg PO HS for psychosis and mood stabilization Sertraline will be d/c levETIRAcetam [Keppra] 500 mg PO BID will be continued traZODone 50 mg PO HS will be continued Bisacodyl [Dulcolax] 10 mg RI PRN PRN will be continued Lactulose 30 ml PO DAILY PRN will be continued depakote 250mg po at am 500mg po hs for mood stabilization (LFT WNL) Rifaximin [Xifaxan] 550 mg PO BID will be continued SW consultation for discharge plan and social issues Family involvement Follow up on labs Will monitor closely Pt was educated about risk/benefits and alternatives of medications, coping strategies (safety plan, suicide prevention), relapse prevention, importance of follow up with psychiatrist and therapist, stay away from drugs/alcohol/smoking Projected ELOS: 7days Prognosis: guarded Discharge Plan and Discharge Criteria: Pt will be not depressed or manic, will be more hopeful, will be not psychotic or anxious, will be not having thoughts of harming self or others, will be tolerating medications well, will not have major side effects, will be able to function, will not pose threat to self or others.
[2018-01-17] MEDS ORDERED: Divalproex 500 mg DR(BID formulation) PO SCH (22:00)
[2018-01-18] MEDS ORDERED: Divalproex 250 mg DR (BID formulation) PO SCH (08:00)
--- NOTE | 2018-01-18 20:21 | PCM.BM ---
Treatment Plan Problems - Problems identified on initial assessmt Altered thought process Date Initiated: 01/16/18 Assessment reference: NA Status: Active Priority: 1 Aggitated/Aggressive Behavior Date Initiated: 01/16/18 Assessment reference: NA Priority: 2 Ineffective Impulse Control Date Initiated: 01/16/18 Assessment reference: NA Status: Active Priority: 3 Treatment assets and liabiliti Patient Assests: ADL independent Patient Liabilities: poor support system - Milieu Protocol Maintain good personal hygiene: daily Encourage regular showers, daily Remind patient to perform daily oral care, daily Assist patient to perform ADL's Conduct patient checks and document Observation sheet: Q15 minutes Maintain personal safety: every shift Educate patient to report safety concerns to staff, every shift Monitor environment for contraband/sharps Medication safety: Monitor for expected outcome, potential side effects: every shift, Assess barriers to learning: every shift, Assess readiness for medication education: every shift Milieu Narrative: milieu/structure/supportive therapy OXcarbazepine [Trileptal] 300 mg PO BID will be continued QUEtiapine [SEROquel] 100mg po am and 200 mg PO HS for psychosis and mood stabilization Sertraline will be d/c levETIRAcetam [Keppra] 500 mg PO BID will be continued traZODone 50 mg PO HS will be continued Bisacodyl [Dulcolax] 10 mg NV PRN PRN will be continued Lactulose 30 ml PO DAILY PRN will be continued depakote 250mg po at am 500mg po hs for mood stabilization (LFT WNL) Rifaximin [Xifaxan] 550 mg PO BID will be continued SW consultation for discharge plan and social issues Family involvement Follow up on labs Will monitor closely Pt was educated about risk/benefits and alternatives of medications, coping strategies (safety plan, suicide prevention), relapse prevention, importance of follow up with psychiatrist and therapist, stay away from drugs/alcohol/smoking Family Contact - Outside Agency [facility] involvment: Information-sharing Discharge/Continuing Care - Treatment Team Participation Patient/Family/SO Statement: milieu/structure/supportive therapy OXcarbazepine [Trileptal] 300 mg PO BID will be continued QUEtiapine [SEROquel] 100mg po am and 200 mg PO HS for psychosis and mood stabilization Sertraline will be d/c levETIRAcetam [Keppra] 500 mg PO BID will be continued traZODone 50 mg PO HS will be continued Bisacodyl [Dulcolax] 10 mg NV PRN PRN will be continued Lactulose 30 ml PO DAILY PRN will be continued depakote 250mg po at am 500mg po hs for mood stabilization (LFT WNL) Rifaximin [Xifaxan] 550 mg PO BID will be continued SW consultation for discharge plan and social issues Family involvement Follow up on labs Will monitor closely Pt was educated about risk/benefits and alternatives of medications, coping strategies (safety plan, suicide prevention), relapse prevention, importance of follow up with psychiatrist and therapist, stay away from drugs/alcohol/smoking
--- NOTE | 2018-01-19 09:05 | PCM.PYCHPN ---
Psychiatric Progress Note - Psychiatric Progress Note Patient seen today, length of contact: 25 min Patient Chief Complaint: "very good, much better" Problems Identified/Issues Discussed: I reviewed assessment and recent notes. Patient is 58 yo male with reported hx of schizoaffective disorder who was transferred from the [facility] for evaluation of agitated, aggressive and inappropriate behavior. Apparently patient was sexually disinhibited and trying to kiss other patients without their consent. He was also breaking things and could not be managed in the [place]. Staff notes indicate that patient has been demonstrating symptoms of ankit on the unit. He has been grandiose, impulsive and making sexually inappropriate as well as racist comments. I met with him at bedside. He is oriented to month, year and location. He has periods of disorganization during my questioning. Some of his responses are irrelevant and do not make sense. He abruptly tells me "I don't want scrambled eggs, I want them whole". Patient reports that he is feeling "very good, much better". Denies any side effects or new discomfort or pain. Patient also denies perceptual disturbance and is adamant that he would never be suicidal or homicidal. There were no major behavioral issues overnight. Diagnostic Results: as per h/o schizoaffective disorder (most likely bipolar type) r/o frontotemporal dementia Medication Change: No Mental Status Examination - Cognitive Function Orientation: Person, Situation, Time Attention: Poor Concentration: Poor Association: Loose - Mood Mood: Other ("very good, much better") - Affect Affect: Flat (and irritable), Other (labile) - Formal Thought Process Formal Thought Process: Delusions (of grandor), Loosening of associations, Other (irrelevent and nonsensical at times) - Suicidal Ideation Suicidal Ideation: No - Homicidal Ideation Homicidal Ideation: No Goal/Treatment Plan - Goal/Treatment Plan Progress Toward Problem(s) and Goals/Treatment Plan: * Group, milieu and supportive tx * Vitals reviewed and noted below 01/18/18 01/18/18 07:00 16:00 Temperature 97.9 F Pulse Rate 64 74 Respiratory 20 Rate Blood Pressure 126/72 123/76 * No new weekend labs thus far CONTINUE depakote 250mg po at am 500mg po hs for mood stabilization, check VPA level in the AM xanax 0.5 mg po TID for anxiety Trileptal 300 mg PO BID Seroquel 200 mg po AM and 300 mg po HS for psychosis and mood stablization trazodone 50 mg PO HS
[2018-01-20] MEDS: Divalproex 250 mg DR (BID formulation) PO SCH (08:15)
--- NOTE | 2018-01-20 09:11 | PCM.PYCHPN ---
Psychiatric Progress Note - Psychiatric Progress Note Patient seen today, length of contact: 25 min Patient Chief Complaint: "leave me the f-ck alone, I will talk to you when I am f-cking leaving!" Problems Identified/Issues Discussed: I reviewed assessment and recent notes. Patient is 58 yo male with reported hx of schizoaffective disorder who was transferred from the [facility] for evaluation of agitated, aggressive and inappropriate behavior. Apparently patient was sexually disinhibited and trying to kiss other patients without their consent. He was also breaking things and could not be managed in the [place]. Staff notes indicate that patient has been demonstrating symptoms of ankit on the unit. He has been grandiose, impulsive and making sexually inappropriate as well as racist comments. Thus far patients behavior has been unpredictable and he continues to be impulsive, labile and easily irritable. He is visible on the unit but not engaged. I met with patient in the dayroom this morning. He appears drowsy but rousable. He is very irritable and unwilling to cooperate. Patient snaps at me "leave me the f-ck alone, I will talk to you when I am f-cking leaving!" Yesterday patient was much more cooperative. He was oriented to month, year and location. He demonstrated periods of disorganization during my questioning and some of his responses were irrelevant and nonsensical. He denied side effects or new discomfort or pain at the time. Patient also denied perceptual disturbance, SI or HI. He does not appear to be in any physical distress at my visit today. Insight and impulse control remain poor. Diagnostic Results: as per h/o schizoaffective disorder (most likely bipolar type) r/o frontotemporal dementia Medication Change: No Mental Status Examination - Cognitive Function Orientation: Person, Situation, Time Attention: Poor Concentration: Poor Association: Loose - Mood Mood: Other ("very good, much better") - Affect Affect: Flat (and irritable), Other (labile) - Formal Thought Process Formal Thought Process: Delusions (of grandor), Loosening of associations, Other (irrelevent and nonsensical at times) - Suicidal Ideation Suicidal Ideation: No - Homicidal Ideation Homicidal Ideation: No Goal/Treatment Plan - Goal/Treatment Plan Progress Toward Problem(s) and Goals/Treatment Plan: * Group, milieu and supportive tx * Vitals reviewed and noted below 01/20/18 06:42 Temperature 97.1 F L Pulse Rate 73 Respiratory 19 Rate Blood Pressure 118/74 * No new weekend labs CONTINUE depakote 250mg po at am 500mg po hs for mood stabilization 01/19/18 09:50 Valproic Acid 26 L xanax 0.5 mg po TID for anxiety Trileptal 300 mg PO BID Seroquel 200 mg po AM and 300 mg po HS for psychosis and mood stablization trazodone 50 mg PO HS
--- NOTE | 2018-01-21 04:55 | PCM.FALL ---
<Hood Villegas - Last Filed: 01/21/18 04:52> Post Fall Progress Note - Post Fall Fall Date: 01/21/18 Fall Time: 04:45 Description of Fall: Per Nursing staff, patient had been agitated earlier this evening and required ativan and geodon. Agitation resolved with these medications. However, a few hours later nurses stated that they heard a loud thump and found the patient on the ground the cain. On interview, patient is not responsive to questioning. Pt' s eyes are open and moving all extremities. Abrasion found on right now, no obvious signs of trauma on head. - Post Fall Exam Vital Sign: Temp Pulse Resp BP Pulse Ox 97.1 F L 75 19 100/73 96 01/20/18 06:42 01/20/18 16:25 01/20/18 06:42 01/20/18 16:25 01/20/18 06:42 Skull Exam: Negative for: Scalp wound, Scalp hematoma, Scalp depression, Ridge in skull Eye Exam: Positive for: Pupils equal, Pupils reactive Ear Exam: Negative for: Discharge, Bleeding Nose Exam: Negative for: Discharge, Bleeding Skin Exam: Positive for: Grazes. Negative for: Colour, Lacerations, Bruising Mouth Exam: Negative for: Tongue bitten, Teeth dislodge Neck Exam: Negative for: Tenderness, Tingling, Weakness Spinal Exam: Negative for: Tenderness, Tingling, Weakness Chest Exam: Negative for: Difficulty breathing, Tenderness in collar bones, Tenderness in ribs Abdomen Exam: Negative for: Tenderness Pelvic Exam: Negative for: Tenderness, Hematuria Arm Exam: Negative for: Deformity, Alteration in range of movement Leg Exam: Negative for: Deformity, Alteration in range of movement Impression/Plan: 58 yo M s/p fall - CBC, CMP - ABG - CT head - Right knee xray - Neurochecks q4h <Blane Grullon - Last Filed: 01/21/18 06:17> Post Fall Progress Note - Post Fall Exam Vital Sign: Temp Pulse Resp BP Pulse Ox 97.1 F L 75 19 100/73 96 01/20/18 06:42 01/20/18 16:25 01/20/18 06:42 01/20/18 16:25 01/20/18 06:42 Attending/Attestation - Attestation I have personally seen and examined this patient.: Yes I have fully participated in the care of the patient.: Yes I have reviewed all pertinent clinical information, including history, physical exam and plan: Yes Notes (Text): 01/21/18 06:[address] Head negative. Xray right neg for fracture. Will get Consultation with hospitalist and Neurologist for cerebral concussion/ contusion.
--- NOTE | 2018-01-21 05:36 | CT ---
EXAM: CT Head Without Intravenous Contrast CLINICAL HISTORY: 58 years old, male; Injury or trauma; Fall; Initial encounter; Concussion / head injury TECHNIQUE: Axial computed tomography images of the head/brain without intravenous contrast. All CT scans at this facility use one or more dose reduction techniques, viz.: automated exposure control; ma/kV adjustment per patient size (including targeted exams where dose is matched to indication; i.e. head); or iterative reconstruction technique. Coronal and sagittal reformatted images were created and reviewed. COMPARISON: No relevant prior studies available. FINDINGS: Limitations: Motion artifact - mild. Brain: Mild atrophy. No definite intracranial hemorrhage. No mass. Minimal decreased attenuation within periventricular white matter. Probable chronic lacunar infarct about LEFT basal ganglia. No definite edema. Ventricles: No hydrocephalus. Bones/joints: No calvarial fracture. Fracture deformity left zygomatic arch, likely chronic. Soft tissues: Unremarkable. Vasculature: Mild atherosclerotic disease of intracranial arteries. Sinuses: No acute sinusitis. Mastoid air cells: No mastoid effusion. Orbits: Unremarkable as visualized. IMPRESSION: 1. No definite intracranial hemorrhage. 2. Nonspecific white matter changes. 3. Incidental/non-acute findings are described above.
[2018-01-21 06:02] LABS: ARTERIAL BLOOD GAS HCO3 26.5 mmol/L (21-28); ARTERIAL BLOOD GAS HEMOGLOBIN 13.3 g/dL (11.7-17.4); ARTERIAL BLOOD GAS O2 CAPACITY 18.1 mL/dl (16-24); ARTERIAL BLOOD GAS O2 CONTENT 17.6 ML/dl (15-23); ARTERIAL BLOOD GAS O2 SAT 97.2 % (95-98); ARTERIAL BLOOD GAS PCO2 39 mm/Hg (35-45); ARTERIAL BLOOD GAS PH 7.44 (7.35-7.45); ARTERIAL BLOOD GAS TCO2 27.7 mmol.L (22-28)
[2018-01-21 06:06] LABS: BASO # 0.01 K/mm3 (0.0-2.0); BASO % 0.3 % (0.0-3.0); EOS # 0.1 (0.0-0.7); EOS % 3.2 % (1.5-5.0); GRAN # 2.11 (1.4-6.5); GRAN % 55.6 % (50.0-68.0); HEMOGLOBIN 13.5 g/dL (14.0-18.0); LYMPH # 1.2 (1.2-3.4); LYMPH % 30.9 % (22.0-35.0); MEAN CELL VOLUME 98.9 fl (80.0-105.0); MEAN CORPUSCULAR HEMOGLOBIN 35.6 pg (25.0-35.0); MEAN PLATELET VOLUME 9.8 fl (7.0-11.0); MONO # 0.4 (0.1-0.6); RBC 3.79 10^6/uL (3.5-6.1); WHITE BLOOD COUNT 3.8 10^3/ul (4.5-11.0)
[2018-01-21 06:43] LABS: ALBUMIN 2.9 g/dL (3.0-4.8); ALT/SGPT 35 U/L (7-56); AST/SGOT 37 U/L (17-59); BLOOD UREA NITROGEN 17 mg/dL (7-21); CALCIUM 9.4 mg/dL (8.4-10.5); GFR AFRICAN-AMERICAN > 60; GFR NON-AFRICAN AMERICAN > 60
--- NOTE | 2018-01-21 08:35 | RAD ---
PROCEDURE: Right Knee Radiographs. HISTORY: fall, right knee abrasion COMPARISON: None. FINDINGS: BONES: Normal. No fracture. JOINTS: Normal. No osteoarthritis. JOINT EFFUSION: None. OTHER FINDINGS: None. IMPRESSION: Normal radiographs of the right knee.
[2018-01-21] MEDS ORDERED: Albuterol-Ipratrop 3 mg / 0.5 (3 ml) UD IH PRN (12:06)
[2018-01-21] MEDS ORDERED: Divalproex 250 mg DR (BID formulation) PO ONE (13:46)
--- NOTE | 2018-01-21 13:50 | CP.PCM.CON ---
<Felipe Grant Micaela - Last Filed: 01/21/18 16:09> History of Present Illness - History of Present Illness History of Present Illness: Medicine consult note for Dr. Kirt Grant DO, PGY - 1 Reason For Consult: Code Star yesterday HPI: 58 year old male with past medical history of Schizoaffective disorder, chronic hepatitis, encephalopathy, major depression, seizures, and COPD presented to [facility] due to disruptive behavior at his correction. Medicine was consulted because patient had a fall yesterday which was seen by the nurses. Patient did not hit his head, had a mild abrasion on his right knee, and was able to move all of his extremities after the fall. Patient had been given ativan and geodon before his fall. CT head showed no acute disease, XR of R knee showed no fracture, ABG was normal, and tropes were negative. Patient was interviewed this morning at bedside, but denies any complaints at this time. Past Surgical History: Pt denies Past Medical History: Schizoaffective, Chronic Hep C, Encephalopathy, Major depression, Seizures, COPD Allergies: NKDA Social History: Patient denies alcohol, tobacco, illicits Hospitalizations: Many times in this facility for psychiatric complaints Family History: Non-contributory Medications: Reviewed, See MAR Review of Systems: 12 point review of systems obtained and negative, except as per HPI Past Patient History - Infectious Disease Hx of Infectious Diseases: None - Past Social History Smoking Status: Heavy Smoker > 10 Cigarettes Daily - CARDIAC Hx Hypertension: Yes - PULMONARY Hx Chronic Obstructive Pulmonary Disease (COPD): Yes - NEUROLOGICAL Hx Neurological Disorder: Yes Hx Seizures: Yes Other/Comment: ENCEPALOPATHY, AMS - HEENT Hx HEENT Problems: No - RENAL Hx Chronic Kidney Disease: No - ENDOCRINE/METABOLIC Hx Endocrine Disorders: No - HEMATOLOGICAL/ONCOLOGICAL Hx Blood Disorders: Yes Other/Comment: HEPATITIS - INTEGUMENTARY Hx Dermatological Problems: No - MUSCULOSKELETAL/RHEUMATOLOGICAL Hx Musculoskeletal Disorders: Yes Hx Fractures: Yes (L leg) - GASTROINTESTINAL Hx Gastrointestinal Disorders: No - GENITOURINARY/GYNECOLOGICAL Hx Genitourinary Disorders: No - PSYCHIATRIC Hx Substance Use: Yes - SURGICAL HISTORY Hx Orthopedic Surgery: Yes (L leg) - ANESTHESIA Hx Anesthesia: Yes Meds Allergies/Adverse Reactions: Allergies Allergy/AdvReac Type Severity Reaction Status Date / Time No Known Allergies Allergy Verified 01/16/18 17:09 - Medications Medications: Current Medications Acetaminophen (Tylenol 325mg Tab) 650 mg PO Q4 PRN PRN Reason: Pain, Mild (1-3) Al Hydrox/Mg Hydrox/Simethicone (Maalox Plus 30 Ml) 30 ml PO DAILY PRN PRN Reason: Upset Stomach Albuterol/Ipratropium (Duoneb 3 Mg/0.5 Mg (3 Ml) Ud) 3 ml IH Q2H PRN PRN Reason: Shortness of Breath Alprazolam (Xanax) 0.5 mg PO TID CAROL PRN Reason: Protocol Last Admin: 01/21/18 12:21 Dose: Not Given Divalproex Sodium (Depakote Sprinkles) 250 mg PO TID COUNT INCLUDES THE [facility] PRN Reason: Protocol Lactulose (Enulose) 10 gm PO DAILY PRN PRN Reason: Constipation Levetiracetam (Keppra) 500 mg PO BID COUNT INCLUDES THE [facility] Last Admin: 01/21/18 12:19 Dose: 500 mg Lorazepam (Ativan) 1 mg IM TID PRN; Protocol PRN Reason: Anxiety Last Admin: 01/21/18 13:06 Dose: 1 mg Lorazepam (Ativan) 1 mg PO TID PRN; Protocol PRN Reason: Anxiety Magnesium Hydroxide (Milk Of Magnesia) 30 ml PO DAILY PRN PRN Reason: Constipation Nicotine (Nicoderm Cq) 1 patch TD DAILY COUNT INCLUDES THE [facility] Last Admin: 01/21/18 12:19 Dose: 1 patch Oxcarbazepine (Trileptal) 300 mg PO BID COUNT INCLUDES THE [facility] PRN Reason: Protocol Last Admin: 01/21/18 12:20 Dose: 300 mg Quetiapine Fumarate (Seroquel) 300 mg PO HS COUNT INCLUDES THE [facility] PRN Reason: Protocol Last Admin: 01/20/18 22:21 Dose: 300 mg Quetiapine Fumarate (Seroquel) 300 mg PO DAILY COUNT INCLUDES THE [facility] PRN Reason: Protocol Rifaximin (Xifaxan) 550 mg PO BID COUNT INCLUDES THE [facility] PRN Reason: Protocol Last Admin: 01/21/18 12:20 Dose: 550 mg Trazodone HCl (Desyrel) 50 mg PO HS COUNT INCLUDES THE [facility] Last Admin: 01/20/18 22:21 Dose: 50 mg Ziprasidone (Geodon Inj) 10 mg IM BID PRN; Protocol PRN Reason: Agitation Last Admin: 01/20/18 22:52 Dose: 10 mg Ziprasidone (Geodon Cap) 20 mg PO BID PRN; Protocol PRN Reason: Anxiety Physical Exam - Constitutional Appears: Well - Head Exam Head Exam: ATRAUMATIC, NORMAL INSPECTION, NORMOCEPHALIC - Eye Exam Eye Exam: EOMI, Normal appearance, PERRL Pupil Exam: NORMAL ACCOMODATION, PERRL - ENT Exam ENT Exam: Mucous Membranes Moist, Normal Exam - Neck Exam Neck exam: Positive for: Normal Inspection - Respiratory Exam Respiratory Exam: Clear to Auscultation Bilateral, NORMAL BREATHING PATTERN - Cardiovascular Exam Cardiovascular Exam: REGULAR RHYTHM - GI/Abdominal Exam GI & Abdominal Exam: Normal Bowel Sounds, Soft. absent: Tenderness - Extremities Exam Extremities exam: Positive for: normal inspection - Back Exam Back exam: NORMAL INSPECTION - Neurological Exam Neurological exam: Alert, CN II-XII Intact, Normal Gait, Oriented x3, Reflexes Normal - Psychiatric Exam Psychiatric exam: Normal Affect, Normal Mood - Skin Skin Exam: Dry, Intact, Normal Color, Warm Results - Vital Signs Recent Vital Signs: Last Vital Signs Temp 98.0 F 01/21/18 07:35 Pulse 67 01/21/18 07:35 Resp 20 01/21/18 07:35 BP 110/66 01/21/18 07:35 Pulse Ox 96 01/20/18 06:42 - Labs Result Diagrams: 01/21/18 05:45 01/21/18 05:45 Labs: Laboratory Results - last 24 hr 01/21/18 01/21/18 01/21/18 04:46 05:45 05:45 WBC 3.8 L RBC 3.79 Hgb 13.5 L Hct 37.5 L MCV 98.9 MCH 35.6 H MCHC 36.0 RDW 14.0 Plt Count 95 L MPV 9.8 Gran % 55.6 Lymph % (Auto) 30.9 [place] % (Auto) 10.0 H Eos % (Auto) 3.2 Baso % (Auto) 0.3 Gran # 2.11 Lymph # (Auto) 1.2 [place] # (Auto) 0.4 Eos # (Auto) 0.1 Baso # (Auto) 0.01 pCO2 pO2 HCO3 ABG pH ABG Total CO2 ABG O2 Saturation ABG O2 Content ABG Base Excess ABG Hemoglobin ABG Carboxyhemoglobin POC ABG HHb (Measured) ABG Methemoglobin ABG O2 Capacity Hgb O2 Saturation FiO2 Sodium 142 Potassium 4.1 Chloride 111 H Carbon Dioxide 27 Anion Gap 8 L BUN 17 Creatinine 0.5 L Est GFR ( Amer) > 60 Est GFR (Non-Af Amer) > 60 POC Glucose (mg/dL) 114 H Random Glucose 90 Calcium 9.4 Total Bilirubin 1.3 AST 37 ALT 35 Alkaline Phosphatase 87 Troponin I Total Protein 5.8 Albumin 2.9 L Globulin 2.9 Albumin/Globulin Ratio 1.0 L 01/21/18 01/21/18 05:59 08:15 WBC RBC Hgb Hct MCV MCH MCHC RDW Plt Count MPV Gran % Lymph % (Auto) [place] % (Auto) Eos % (Auto) Baso % (Auto) Gran # Lymph # (Auto) [place] # (Auto) Eos # (Auto) Baso # (Auto) pCO2 39 pO2 74.0 L HCO3 26.5 ABG pH 7.44 ABG Total CO2 27.7 ABG O2 Saturation 97.2 ABG O2 Content 17.6 ABG Base Excess 2.3 ABG Hemoglobin 13.3 ABG Carboxyhemoglobin 2.5 H POC ABG HHb (Measured) 2.7 ABG Methemoglobin 0.9 ABG O2 Capacity 18.1 Hgb O2 Saturation 93.8 L FiO2 21.0 Sodium Potassium Chloride Carbon Dioxide Anion Gap BUN Creatinine Est GFR ( Amer) Est GFR (Non-Af Amer) POC Glucose (mg/dL) Random Glucose Calcium Total Bilirubin AST ALT Alkaline Phosphatase Troponin I < 0.01 Total Protein Albumin Globulin Albumin/Globulin Ratio Assessment & Plan - Assessment and Plan (Free Text) Assessment: Assessment and Plan 58 year old male with past medical history of Chronic Hep C, Encephalopathy, Seizures, COPD, presented with disruptive behavior to [facility]. Last night, Code Star was called after patient fell without head trauma. Medicine consulted for follow up as well as management of chronic medical problems. Status post fall, likely 2/2 medications - R Knee XR showed no fracture - No head trauma - Pain management: if patient complains of pain, motrin prn - Neuro consulted: see below Hepatic Encephalopathy - Patient's ammonium level ordered - Lactulose 10 gm po daily prn - Rifaximin 550 mg po bid - Patient does not complain of diarrhea at this time History of Seizures - Patient on Trileptal - No transaminitis - Neurology consult, Dr. Cam: 1. Depakote 1000 mg PO loading dose; increase depakote from 250 mg to 500 mg PO Q 12. Optimize before adding second anti-epileptic 2. D/c keppra to minimize agitation 3. Seroquel from 300 to 25 mg PO HS for both seizure and mood stabilizer, decreased to avoid decreasing seizure threshold 4. Geodon only if absolutely necessary, as it will decrease the anti-seizure efficacy 5. Monitor liver enzymes and depakote level. Chronic Hep C - No acute intervention - Known from prison, but we do not know if it has been treated Questionable History of COPD - Duonebs PRN Schizoaffective Disorder - Management per psychiatry Major Depressive Disorder - Management per psychiatry Prophylaxis - No necessity Dispo: Patient medically stable at this point. Please feel free to re-consult as necessary. <Vanessa De Jesus - Last Filed: 01/22/18 14:21> Meds - Medications Medications: Current Medications Acetaminophen (Tylenol 325mg Tab) 650 mg PO Q4 PRN PRN Reason: Pain, Mild (1-3) Al Hydrox/Mg Hydrox/Simethicone (Maalox Plus 30 Ml) 30 ml PO DAILY PRN PRN Reason: Upset Stomach Albuterol/Ipratropium (Duoneb 3 Mg/0.5 Mg (3 Ml) Ud) 3 ml IH Q2H PRN PRN Reason: Shortness of Breath Alprazolam (Xanax) 1 mg PO TID CAROL PRN Reason: Protocol Diphenhydramine HCl (Benadryl) 50 mg PO Q8 PRN PRN Reason: Agitation Last Admin: 01/21/18 21:02 Dose: 50 mg Divalproex Sodium (Depakote Dr(*Bid*)) 500 mg PO BID CAROL Lactulose (Enulose) 20 gm PO BID CAROL Lorazepam (Ativan) 1 mg IM TID PRN; Protocol PRN Reason: Anxiety Last Admin: 01/22/18 01:36 Dose: 1 mg Lorazepam (Ativan) 1 mg PO TID PRN; Protocol PRN Reason: Anxiety Magnesium Hydroxide (Milk Of Magnesia) 30 ml PO DAILY PRN PRN Reason: Constipation Nicotine (Nicoderm Cq) 1 patch TD DAILY CAROL Last Admin: 01/22/18 08:22 Dose: 1 patch Oxcarbazepine (Trileptal) 300 mg PO BID CAROL PRN Reason: Protocol Last Admin: 01/22/18 08:22 Dose: 300 mg Quetiapine Fumarate (Seroquel) 50 mg PO AMHS CAROL PRN Reason: Protocol Rifaximin (Xifaxan) 550 mg PO BID CAROL PRN Reason: Protocol Last Admin: 01/22/18 08:22 Dose: 550 mg Trazodone HCl (Desyrel) 100 mg PO HS CAROL Ziprasidone (Geodon Inj) 10 mg IM BID PRN; Protocol PRN Reason: for severe agitation Last Admin: 01/22/18 12:37 Dose: 10 mg Results - Vital Signs Recent Vital Signs: Last Vital Signs Temp 98.0 F 01/21/18 07:35 Pulse 75 01/22/18 06:52 Resp 17 01/22/18 06:52 BP 116/83 01/22/18 06:52 Pulse Ox 96 01/20/18 06:42 - Labs Result Diagrams: 01/21/18 05:45 01/21/18 05:45 Labs: Laboratory Results - last 24 hr 01/22/18 07:20 Ammonia 121 H Attending/Attestation - Attestation I have personally seen and examined this patient.: Yes I have fully participated in the care of the patient.: Yes I have reviewed all pertinent clinical information: Yes Notes (Text): I have seen and briefly examined this patient at bedside. Agree with the above note with the following additions/ exceptions: Briefly this is 58 year old male with history of schizoaffective disorder, chronic hep c (known and questionable if treated), major depression, seizures, copd who was admitted for management of disruptive behavior at correction. Patient had a fall yesterday. Patient was somnolent and when he woke up he refused to cooperate with us. He was very upset that why we were asking him questions. Knee xray was normal. Will check ammonia level and start lactulose and rifaxamin. Awaiting neuro consult. Manage Hepc as an outpatient. Manage depression as per psychiatry.
--- NOTE | 2018-01-21 14:30 | CP.PCM.CON ---
History of Present Illness - History of Present Illness History of Present Illness: Mr. Miner is a 58y/o who came to the ED on 01/16/18 at 11:52 due to anger reaction while at [facility]? Prior to ED arrival; pt was breaking dishes /throwing thing; pt states he was not trying to hurt anyone, pt states he was angry that his coffee was cold and he was not been taking care of while at the correction; pt states no fever/chills/sweats, no cp/sob/palpitations, no abd pain, no n/v, no numbness/tingling, no urinary/bowel changes, no rashes, no gross bleeding, no fall/trauma/sick contact, no travel; pt is here for further eval; pt's without other complaints. pt denied SI/HI, pt denied hallucinations - visual/tactile/auditory. While in the [facility] unit, he fell which prompted neurology consult. Today, he had an episode of agitation, combative, restlessness which trigger the staff to give him ativan and place him on 1:1 sitter for patient safety. Review of Systems - Review of Systems All systems: reviewed and no additional remarkable complaints except Past Patient History - Infectious Disease Hx of Infectious Diseases: None - Past Social History Smoking Status: Heavy Smoker > 10 Cigarettes Daily - CARDIAC Hx Hypertension: Yes - PULMONARY Hx Chronic Obstructive Pulmonary Disease (COPD): Yes - NEUROLOGICAL Hx Neurological Disorder: Yes Hx Seizures: Yes Other/Comment: ENCEPALOPATHY, AMS - HEENT Hx HEENT Problems: No - RENAL Hx Chronic Kidney Disease: No - ENDOCRINE/METABOLIC Hx Endocrine Disorders: No - HEMATOLOGICAL/ONCOLOGICAL Hx Blood Disorders: Yes Other/Comment: HEPATITIS - INTEGUMENTARY Hx Dermatological Problems: No - MUSCULOSKELETAL/RHEUMATOLOGICAL Hx Musculoskeletal Disorders: Yes Hx Fractures: Yes (L leg) - GASTROINTESTINAL Hx Gastrointestinal Disorders: No - GENITOURINARY/GYNECOLOGICAL Hx Genitourinary Disorders: No - PSYCHIATRIC Hx Substance Use: Yes - SURGICAL HISTORY Hx Orthopedic Surgery: Yes (L leg) - ANESTHESIA Hx Anesthesia: Yes Meds Allergies/Adverse Reactions: Allergies Allergy/AdvReac Type Severity Reaction Status Date / Time No Known Allergies Allergy Verified 01/16/18 17:09 - Medications Medications: Current Medications Acetaminophen (Tylenol 325mg Tab) 650 mg PO Q4 PRN PRN Reason: Pain, Mild (1-3) Al Hydrox/Mg Hydrox/Simethicone (Maalox Plus 30 Ml) 30 ml PO DAILY PRN PRN Reason: Upset Stomach Albuterol/Ipratropium (Duoneb 3 Mg/0.5 Mg (3 Ml) Ud) 3 ml IH Q2H PRN PRN Reason: Shortness of Breath Alprazolam (Xanax) 0.5 mg PO TID CAROL PRN Reason: Protocol Last Admin: 01/21/18 12:21 Dose: Not Given Divalproex Sodium (Depakote Sprinkles) 500 mg PO Q12 CAROL PRN Reason: Protocol Lactulose (Enulose) 10 gm PO DAILY PRN PRN Reason: Constipation Lorazepam (Ativan) 1 mg IM TID PRN; Protocol PRN Reason: Anxiety Last Admin: 01/21/18 13:06 Dose: 1 mg Lorazepam (Ativan) 1 mg PO TID PRN; Protocol PRN Reason: Anxiety Magnesium Hydroxide (Milk Of Magnesia) 30 ml PO DAILY PRN PRN Reason: Constipation Nicotine (Nicoderm Cq) 1 patch TD DAILY [facility] Last Admin: 01/21/18 12:19 Dose: 1 patch Oxcarbazepine (Trileptal) 300 mg PO BID [facility] PRN Reason: Protocol Last Admin: 01/21/18 12:20 Dose: 300 mg Rifaximin (Xifaxan) 550 mg PO BID [facility] PRN Reason: Protocol Last Admin: 01/21/18 12:20 Dose: 550 mg Trazodone HCl (Desyrel) 50 mg PO HS [facility] Last Admin: 01/20/18 22:21 Dose: 50 mg Ziprasidone (Geodon Inj) 10 mg IM BID PRN; Protocol PRN Reason: Agitation Last Admin: 01/20/18 22:52 Dose: 10 mg Ziprasidone (Geodon Cap) 20 mg PO BID PRN; Protocol PRN Reason: Anxiety Physical Exam - Constitutional Appears: No Acute Distress - Head Exam Head Exam: NORMAL INSPECTION - Neurological Exam Additional comments: He is asleep and unable to follow commands. - Psychiatric Exam Psychiatric exam: Agitated Results - Vital Signs Recent Vital Signs: Last Vital Signs Temp 98.0 F 01/21/18 07:35 Pulse 67 01/21/18 07:35 Resp 20 01/21/18 07:35 BP 110/66 03/26/18 07:35 Pulse Ox 96 01/20/18 06:42 - Labs Result Diagrams: 01/21/18 05:45 01/21/18 05:45 Labs: Laboratory Results - last 24 hr 01/21/18 01/21/18 01/21/18 04:46 05:45 05:45 WBC 3.8 L RBC 3.79 Hgb 13.5 L Hct 37.5 L MCV 98.9 MCH 35.6 H MCHC 36.0 RDW 14.0 Plt Count 95 L MPV 9.8 Gran % 55.6 Lymph % (Auto) 30.9 [place] % (Auto) 10.0 H Eos % (Auto) 3.2 Baso % (Auto) 0.3 Gran # 2.11 Lymph # (Auto) 1.2 [place] # (Auto) 0.4 Eos # (Auto) 0.1 Baso # (Auto) 0.01 pCO2 pO2 HCO3 ABG pH ABG Total CO2 ABG O2 Saturation ABG O2 Content ABG Base Excess ABG Hemoglobin ABG Carboxyhemoglobin POC ABG HHb (Measured) ABG Methemoglobin ABG O2 Capacity Hgb O2 Saturation FiO2 Sodium 142 Potassium 4.1 Chloride 111 H Carbon Dioxide 27 Anion Gap 8 L BUN 17 Creatinine 0.5 L Est GFR ( Amer) > 60 Est GFR (Non-Af Amer) > 60 POC Glucose (mg/dL) 114 H Random Glucose 90 Calcium 9.4 Total Bilirubin 1.3 AST 37 ALT 35 Alkaline Phosphatase 87 Troponin I Total Protein 5.8 Albumin 2.9 L Globulin 2.9 Albumin/Globulin Ratio 1.0 L 01/21/18 01/21/18 05:59 08:15 WBC RBC Hgb Hct MCV MCH MCHC RDW Plt Count MPV Gran % Lymph % (Auto) [place] % (Auto) Eos % (Auto) Baso % (Auto) Gran # Lymph # (Auto) [place] # (Auto) Eos # (Auto) Baso # (Auto) pCO2 39 pO2 74.0 L HCO3 26.5 ABG pH 7.44 ABG Total CO2 27.7 ABG O2 Saturation 97.2 ABG O2 Content 17.6 ABG Base Excess 2.3 ABG Hemoglobin 13.3 ABG Carboxyhemoglobin 2.5 H POC ABG HHb (Measured) 2.7 ABG Methemoglobin 0.9 ABG O2 Capacity 18.1 Hgb O2 Saturation 93.8 L FiO2 21.0 Sodium Potassium Chloride Carbon Dioxide Anion Gap BUN Creatinine Est GFR ( Amer) Est GFR (Non-Af Amer) POC Glucose (mg/dL) Random Glucose Calcium Total Bilirubin AST ALT Alkaline Phosphatase Troponin I < 0.01 Total Protein Albumin Globulin Albumin/Globulin Ratio Assessment & Plan (1) Fall Assessment and Plan: He is a 58y/o male with extensive psychiatry problem and fell which prompted neurology consult. Today, he had an episode of agitation, combative, restlessness which trigger the staff to give him ativan. Case discussed with Dr. Cam, recommend the following; 1. Load depakote 1000 mg PO for one dose, then increase depakote from 250 mg to 500 mg PO Q 12. Will maximize this anti-seizure before adding additional anti- seizure. 2. D/c keppra which will cause more agitation especially to patient with psch. problems. 3. Decrease seroquel from 300 to 25 mg PO HS for both seizure and mood stabilizer.To avoid decreasing seizure threshold, will recommend decreasing seroquel dose. 4. Please adm. Ino if absolute necessary, which will lessen the anti- seizure efficacy and it is schedule as PRN. 5. Monitor liver enzymes and depakote level. Thank You. Status: Acute
--- NOTE | 2018-01-21 16:08 | PCM.PYCHPN ---
Psychiatric Progress Note - Psychiatric Progress Note Patient seen today, length of contact: 30min Patient Chief Complaint: "I am fine, I want to go home" Problems Identified/Issues Discussed: Suicide/ homicide prevention, past psychiatric h/o, current psychiatric symptoms , medical problems, risk/benefits and alternatives of medications, medications compliance, coping strategies, substance abuse h/o, relapse prevention, importance of follow up with psychiatrist and therapist, discharge plan. Medical Problems: see HPI Diagnostic Results: 01/16/18 12:00 01/16/18 12:00 Lab Results 01/17/18 07:00: RPR Nonreactive 01/17/18 07:00: Free T4 0.85, TSH 3rd Generation 0.65 01/17/18 07:00: Fasting Glucose 75, Triglycerides 30 L, Cholesterol 96 L, LDL Cholesterol Direct 33, HDL Cholesterol 50 01/16/18 12:30: Urine Opiates Screen Negative, Urine Methadone Screen Negative, Ur Barbiturates Screen Negative, Ur Phencyclidine Scrn Negative, Ur Amphetamines Screen Negative, U Benzodiazepines Scrn Negative, U Oth Cocaine Metabols Negative, U Cannabinoids Screen Negative 01/16/18 12:30: Urine Color Yellow, Urine Appearance Clear, Urine pH 6.5, Ur Specific [place] 1.015, Urine Protein Negative, Urine Glucose (UA) Negative, Urine Ketones Negative, Urine Blood Negative, Urine Nitrate Negative, Urine Bilirubin Negative, Urine Urobilinogen 4.0 H, Ur Leukocyte Esterase Negative 01/16/18 12:00: Alcohol, Quantitative < 10 01/16/18 12:00: Salicylates < 1 L, Acetaminophen < 10.0 L 01/16/18 12:00: Sodium 143, Potassium 3.7, Chloride 110 H, Carbon Dioxide 26, Anion Gap 11, BUN 11, Creatinine 0.5 L, Est GFR ( Amer) > 60, Est GFR ( Non-Af Amer) > 60, Random Glucose 81, Calcium 8.9, Total Bilirubin 1.3, AST 50, ALT 49, Alkaline Phosphatase 90, Total Protein 5.6 L, Albumin 2.9 L, Globulin 2.7, Albumin/Globulin Ratio 1.0 L 01/16/18 12:00: WBC 4.0 L, RBC 3.41 L, Hgb 12.4 L, Hct 34.1 L, MCV 100.0, MCH 36.4 H, MCHC 36.4, RDW 14.2, Plt Count 96 L, MPV 10.5, Gran % 48.6 L, Lymph % ( Auto) 36.6 H, [place] % (Auto) 11.4 H, Eos % (Auto) 3.2, Baso % (Auto) 0.2, Gran # 1.96, Lymph # (Auto) 1.5, [place] # (Auto) 0.5, Eos # (Auto) 0.1, Baso # (Auto) 0.01 Vital Signs Temp Pulse Resp BP Pulse Ox 01/18/18 07:00 97.9 F 64 20 126/72 01/17/18 15:00 72 93/58 L 01/17/18 07:29 97.5 F L 63 20 104/68 01/16/18 16:00 98.1 F 69 16 118/71 96 01/16/18 14:17 98 F 60 18 110/60 98 01/16/18 13:00 64 16 110/65 98 01/16/18 11:30 98 F 68 18 105/64 97 DSM 5 Symptoms Update: Shortly pt is 58yo male with reported h/o schizoaffective disorder, denied previous psychiatric admissions, denied h/o suicidal attempts, pt was transferred from the [facility] for evaluation of agitated, aggressive, inappropriate behavior, pt was sexually disinhibited, was trying to kiss other consumers with no permission, was making sexual remarks, was breaking things, was not manageable in the NH. pt requires meds adjustment, observation. pt was seen and examined today at the tx team meeting room with therapist. as per report pt was making sexual remarks and using profanities, pt also was making racial remarks. 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 pt presented with acceptable personal hygiene, fair ADLs, walks independently. pt was oriented in self, date, but was not aware of the name of the hospital, but aware that he is in the hospital. pt obviously has difficulties to concentrate and stay focused, when was asked what brought pt to the hospital pt said "I was agitated, another kimberly said that f...k you and f...k your mother and f...k your father!", pt then said "I wanted to kill him", when pt was asked when it happened pt replied "5years ago", pt was not able to answer how it is related to the question he was asked. pt also was making sexual and racist remarks, but as per staff pt did not have any agitation or aggression. pt denied v/a/t hallucinations, but pt is guarded. pt denied feeling depressed, denied thoughts of harming self or others. pt reported to have traumatic events in the past "I was in longterm so many times, too many to count". pt denied any flashbacks, reliving of situation. pt was grandiose, manic, sexually preoccupied. Mental Status Examination - Cognitive Function Orientation: Person, Situation, Time - Mood Mood: Other ("I am fine") - Affect Affect: Flat (and irritable) - Formal Thought Process Formal Thought Process: Delusions (of grandor) - Homicidal Ideation Homicidal Ideation: No Goal/Treatment Plan - Goal/Treatment Plan Progress Toward Problem(s) and Goals/Treatment Plan: milieu/structure/supportive therapy OXcarbazepine [Trileptal] 300 mg PO BID will be continued QUEtiapine [SEROquel] 100mg po am and 200 mg PO HS for psychosis and mood stabilization Sertraline will be d/c levETIRAcetam [Keppra] 500 mg PO BID will be continued traZODone 50 mg PO HS will be continued Bisacodyl [Dulcolax] 10 mg IN PRN PRN will be continued Lactulose 30 ml PO DAILY PRN will be continued depakote 250mg po at am 500mg po hs for mood stabilization (LFT WNL) Rifaximin [Xifaxan] 550 mg PO BID will be continued SW consultation for discharge plan and social issues Family involvement Follow up on labs Will monitor closely Pt was educated about risk/benefits and alternatives of medications, coping strategies (safety plan, suicide prevention), relapse prevention, importance of follow up with psychiatrist and therapist, stay away from drugs/alcohol/smoking
--- NOTE | 2018-01-21 16:21 | PCM.PYCHPN ---
Psychiatric Progress Note - Psychiatric Progress Note Patient seen today, length of contact: 30min Patient Chief Complaint: "Leave me alone", "NO i said NO". Problems Identified/Issues Discussed: Suicide/ homicide prevention, past psychiatric h/o, current psychiatric symptoms , medical problems, risk/benefits and alternatives of medications, medications compliance, coping strategies, substance abuse h/o, relapse prevention, importance of follow up with psychiatrist and therapist, discharge plan. Medical Problems: see HPI Diagnostic Results: 01/16/18 12:00 01/16/18 12:00 Lab Results 01/17/18 07:00: RPR Nonreactive 01/17/18 07:00: Free T4 0.85, TSH 3rd Generation 0.65 01/17/18 07:00: Fasting Glucose 75, Triglycerides 30 L, Cholesterol 96 L, LDL Cholesterol Direct 33, HDL Cholesterol 50 01/16/18 12:30: Urine Opiates Screen Negative, Urine Methadone Screen Negative, Ur Barbiturates Screen Negative, Ur Phencyclidine Scrn Negative, Ur Amphetamines Screen Negative, U Benzodiazepines Scrn Negative, U Oth Cocaine Metabols Negative, U Cannabinoids Screen Negative 01/16/18 12:30: Urine Color Yellow, Urine Appearance Clear, Urine pH 6.5, Ur Specific [place] 1.015, Urine Protein Negative, Urine Glucose (UA) Negative, Urine Ketones Negative, Urine Blood Negative, Urine Nitrate Negative, Urine Bilirubin Negative, Urine Urobilinogen 4.0 H, Ur Leukocyte Esterase Negative 01/16/18 12:00: Alcohol, Quantitative < 10 01/16/18 12:00: Salicylates < 1 L, Acetaminophen < 10.0 L 01/16/18 12:00: Sodium 143, Potassium 3.7, Chloride 110 H, Carbon Dioxide 26, Anion Gap 11, BUN 11, Creatinine 0.5 L, Est GFR ( Amer) > 60, Est GFR ( Non-Af Amer) > 60, Random Glucose 81, Calcium 8.9, Total Bilirubin 1.3, AST 50, ALT 49, Alkaline Phosphatase 90, Total Protein 5.6 L, Albumin 2.9 L, Globulin 2.7, Albumin/Globulin Ratio 1.0 L 01/16/18 12:00: WBC 4.0 L, RBC 3.41 L, Hgb 12.4 L, Hct 34.1 L, MCV 100.0, MCH 36.4 H, MCHC 36.4, RDW 14.2, Plt Count 96 L, MPV 10.5, Gran % 48.6 L, Lymph % ( Auto) 36.6 H, [place] % (Auto) 11.4 H, Eos % (Auto) 3.2, Baso % (Auto) 0.2, Gran # 1.96, Lymph # (Auto) 1.5, [place] # (Auto) 0.5, Eos # (Auto) 0.1, Baso # (Auto) 0.01 Vital Signs Temp Pulse Resp BP Pulse Ox 01/18/18 07:00 97.9 F 64 20 126/72 01/17/18 15:00 72 93/58 L 01/17/18 07:29 97.5 F L 63 20 104/68 01/16/18 16:00 98.1 F 69 16 118/71 96 01/16/18 14:17 98 F 60 18 110/60 98 01/16/18 13:00 64 16 110/65 98 01/16/18 11:30 98 F 68 18 105/64 97 Abnormal Lab Results 01/21/18 01/21/18 01/21/18 04:46 05:45 05:45 WBC 3.8 L RBC 3.79 Hgb 13.5 L Hct 37.5 L MCV 98.9 MCH 35.6 H MCHC 36.0 RDW 14.0 Plt Count 95 L MPV 9.8 Gran % 55.6 Lymph % (Auto) 30.9 [place] % (Auto) 10.0 H Eos % (Auto) 3.2 Baso % (Auto) 0.3 Gran # 2.11 Lymph # (Auto) 1.2 [place] # (Auto) 0.4 Eos # (Auto) 0.1 Baso # (Auto) 0.01 pCO2 pO2 HCO3 ABG pH ABG Total CO2 ABG O2 Saturation ABG O2 Content ABG Base Excess ABG Hemoglobin ABG Carboxyhemoglobin POC ABG HHb (Measured) ABG Methemoglobin ABG O2 Capacity Hgb O2 Saturation FiO2 Sodium 142 Potassium 4.1 Chloride 111 H Carbon Dioxide 27 Anion Gap 8 L BUN 17 Creatinine 0.5 L Est GFR ( Amer) > 60 Est GFR (Non-Af Amer) > 60 POC Glucose (mg/dL) 114 H Random Glucose 90 Calcium 9.4 Total Bilirubin 1.3 AST 37 ALT 35 Alkaline Phosphatase 87 Troponin I Total Protein 5.8 Albumin 2.9 L Globulin 2.9 Albumin/Globulin Ratio 1.0 L 01/21/18 01/21/18 05:59 08:15 WBC RBC Hgb Hct MCV MCH MCHC RDW Plt Count MPV Gran % Lymph % (Auto) [place] % (Auto) Eos % (Auto) Baso % (Auto) Gran # Lymph # (Auto) [place] # (Auto) Eos # (Auto) Baso # (Auto) pCO2 39 pO2 74.0 L HCO3 26.5 ABG pH 7.44 ABG Total CO2 27.7 ABG O2 Saturation 97.2 ABG O2 Content 17.6 ABG Base Excess 2.3 ABG Hemoglobin 13.3 ABG Carboxyhemoglobin 2.5 H POC ABG HHb (Measured) 2.7 ABG Methemoglobin 0.9 ABG O2 Capacity 18.1 Hgb O2 Saturation 93.8 L FiO2 21.0 Sodium Potassium Chloride Carbon Dioxide Anion Gap BUN Creatinine Est GFR ( Amer) Est GFR (Non-Af Amer) POC Glucose (mg/dL) Random Glucose Calcium Total Bilirubin AST ALT Alkaline Phosphatase Troponin I < 0.01 Total Protein Albumin Globulin Albumin/Globulin Ratio Temp Pulse Resp BP Pulse Ox 98.0 F 67 20 110/66 96 01/21/18 07:35 01/21/18 07:35 01/21/18 07:35 01/21/18 07:35 01/20/18 06:42 DSM 5 Symptoms Update: Shortly pt is 58yo male with reported h/o schizoaffective disorder, denied previous psychiatric admissions, denied h/o suicidal attempts, pt was transferred from the [facility] for evaluation of agitated, aggressive, inappropriate behavior, pt was sexually disinhibited, was trying to kiss other consumers with no permission, was making sexual remarks, was breaking things, was not manageable in the [place]. pt requires meds adjustment, observation. pt was seen and examined today in his room, as per report pt was agitated yesterday, was aggressive, required to have IM of geodon, later on pt fell, pt was evaluated by , all labs, CT, XR wnl. pt was started on 1:1 for fall precaution, confusion. pt was seen in his room, pt makes no sense, was screaming on top of his lungs, "Leave me alone", "NO i said NO". pt was still in manic stage, was sexually preoccupied, disorganized. as per staff pt ate breakfast. pt took his meds, but has tendency of refuse them. pt grandiose, manic. DSM 5 Diagnosis: as per h/o schizoaffective disorder (most likely bipolar type) r/o frontotemporal dementia Medication Change: Yes (depakote started) Medical Record Reviewed: Yes Consults ordered or reviewed: medical consult neurology consult will be called reason: pt is on Keppra, which could give aggression/agitation pt has h/o Hep C, hepatic encephalopathy this story writer would like to d/c keppra and initiate Depakote, but will it be safe for the pt? Mental Status Examination - Cognitive Function Orientation: Person, Situation, Time Memory: Impaired Attention: Poor Concentration: Poor Association: Loose Fund of Knowledge: Poor - Mood Mood: Other ("leave me alone") - Affect Affect: Flat (and irritable) - Speech Speech: Loud - Formal Thought Process Formal Thought Process: Delusions (of grandor) - Suicidal Ideation Suicidal Ideation: No - Homicidal Ideation Homicidal Ideation: No Goal/Treatment Plan - Goal/Treatment Plan Need for Continued Stay: Remain at risks for inpatient hospitalization, Severe depression anxiety, Discharge may exacerbated symptoms, Severe functional impairment Progress Toward Problem(s) and Goals/Treatment Plan: milieu/structure/supportive therapy seroquel was on hold by neuro levETIRAcetam was on hold by neuro depakote was started by neuro ativan prn will monitor closely SW consultation for discharge plan and social issues Family involvement Follow up on labs Will monitor closely Pt was educated about risk/benefits and alternatives of medications, coping strategies (safety plan, suicide prevention), relapse prevention, importance of follow up with psychiatrist and therapist, stay away from drugs/alcohol/smoking Estimated Date of D/C: 01/25/18
[2018-01-21] MEDS: Divalproex 125 mg EC Sprinkle Cap PO SCH (17:40)
[2018-01-21] MEDS ORDERED: Divalproex 125 mg EC Sprinkle Cap PO SCH (18:00)
--- NOTE | 2018-01-21 23:49 | CARD ---
APPROVED REPORT EKG Measurement Heart [id number] <Conclusion> Normal sinus rhythm Normal ECG
--- NOTE | 2018-01-22 14:59 | PCM.PYCHPN ---
Psychiatric Progress Note - Psychiatric Progress Note Patient seen today, length of contact: 30min Patient Chief Complaint: "Leave me alone, [id number]_" Problems Identified/Issues Discussed: Suicide/ homicide prevention, past psychiatric h/o, current psychiatric symptoms , medical problems, risk/benefits and alternatives of medications, medications compliance, coping strategies, substance abuse h/o, relapse prevention, importance of follow up with psychiatrist and therapist, discharge plan. Medical Problems: chronic hepatitis, htn, encephalopathy and seizure d/o. Diagnostic Results: 01/16/18 12:00 01/16/18 12:00 Lab Results 01/17/18 07:00: RPR Nonreactive 01/17/18 07:00: Free T4 0.85, TSH 3rd Generation 0.65 01/17/18 07:00: Fasting Glucose 75, Triglycerides 30 L, Cholesterol 96 L, LDL Cholesterol Direct 33, HDL Cholesterol 50 01/16/18 12:30: Urine Opiates Screen Negative, Urine Methadone Screen Negative, Ur Barbiturates Screen Negative, Ur Phencyclidine Scrn Negative, Ur Amphetamines Screen Negative, U Benzodiazepines Scrn Negative, U Oth Cocaine Metabols Negative, U Cannabinoids Screen Negative 01/16/18 12:30: Urine Color Yellow, Urine Appearance Clear, Urine pH 6.5, Ur Specific [place] 1.015, Urine Protein Negative, Urine Glucose (UA) Negative, Urine Ketones Negative, Urine Blood Negative, Urine Nitrate Negative, Urine Bilirubin Negative, Urine Urobilinogen 4.0 H, Ur Leukocyte Esterase Negative 01/16/18 12:00: Alcohol, Quantitative < 10 01/16/18 12:00: Salicylates < 1 L, Acetaminophen < 10.0 L 01/16/18 12:00: Sodium 143, Potassium 3.7, Chloride 110 H, Carbon Dioxide 26, Anion Gap 11, BUN 11, Creatinine 0.5 L, Est GFR ( Amer) > 60, Est GFR ( Non-Af Amer) > 60, Random Glucose 81, Calcium 8.9, Total Bilirubin 1.3, AST 50, ALT 49, Alkaline Phosphatase 90, Total Protein 5.6 L, Albumin 2.9 L, Globulin 2.7, Albumin/Globulin Ratio 1.0 L 01/16/18 12:00: WBC 4.0 L, RBC 3.41 L, Hgb 12.4 L, Hct 34.1 L, MCV 100.0, MCH 36.4 H, MCHC 36.4, RDW 14.2, Plt Count 96 L, MPV 10.5, Gran % 48.6 L, Lymph % ( Auto) 36.6 H, [place] % (Auto) 11.4 H, Eos % (Auto) 3.2, Baso % (Auto) 0.2, Gran # 1.96, Lymph # (Auto) 1.5, [place] # (Auto) 0.5, Eos # (Auto) 0.1, Baso # (Auto) 0.01 Vital Signs Temp Pulse Resp BP Pulse Ox 01/18/18 07:00 97.9 F 64 20 126/72 01/17/18 15:00 72 93/58 L 01/17/18 07:29 97.5 F L 63 20 104/68 01/16/18 16:00 98.1 F 69 16 118/71 96 01/16/18 14:17 98 F 60 18 110/60 98 01/16/18 13:00 64 16 110/65 98 01/16/18 11:30 98 F 68 18 105/64 97 Abnormal Lab Results 01/21/18 01/21/18 01/21/18 04:46 05:45 05:45 WBC 3.8 L RBC 3.79 Hgb 13.5 L Hct 37.5 L MCV 98.9 MCH 35.6 H MCHC 36.0 RDW 14.0 Plt Count 95 L MPV 9.8 Gran % 55.6 Lymph % (Auto) 30.9 [place] % (Auto) 10.0 H Eos % (Auto) 3.2 Baso % (Auto) 0.3 Gran # 2.11 Lymph # (Auto) 1.2 [place] # (Auto) 0.4 Eos # (Auto) 0.1 Baso # (Auto) 0.01 pCO2 pO2 HCO3 ABG pH ABG Total CO2 ABG O2 Saturation ABG O2 Content ABG Base Excess ABG Hemoglobin ABG Carboxyhemoglobin POC ABG HHb (Measured) ABG Methemoglobin ABG O2 Capacity Hgb O2 Saturation FiO2 Sodium 142 Potassium 4.1 Chloride 111 H Carbon Dioxide 27 Anion Gap 8 L BUN 17 Creatinine 0.5 L Est GFR ( Amer) > 60 Est GFR (Non-Af Amer) > 60 POC Glucose (mg/dL) 114 H Random Glucose 90 Calcium 9.4 Total Bilirubin 1.3 AST 37 ALT 35 Alkaline Phosphatase 87 Troponin I Total Protein 5.8 Albumin 2.9 L Globulin 2.9 Albumin/Globulin Ratio 1.0 L 01/21/18 01/21/18 05:59 08:15 WBC RBC Hgb Hct MCV MCH MCHC RDW Plt Count MPV Gran % Lymph % (Auto) [place] % (Auto) Eos % (Auto) Baso % (Auto) Gran # Lymph # (Auto) [place] # (Auto) Eos # (Auto) Baso # (Auto) pCO2 39 pO2 74.0 L HCO3 26.5 ABG pH 7.44 ABG Total CO2 27.7 ABG O2 Saturation 97.2 ABG O2 Content 17.6 ABG Base Excess 2.3 ABG Hemoglobin 13.3 ABG Carboxyhemoglobin 2.5 H POC ABG HHb (Measured) 2.7 ABG Methemoglobin 0.9 ABG O2 Capacity 18.1 Hgb O2 Saturation 93.8 L FiO2 21.0 Sodium Potassium Chloride Carbon Dioxide Anion Gap BUN Creatinine Est GFR ( Amer) Est GFR (Non-Af Amer) POC Glucose (mg/dL) Random Glucose Calcium Total Bilirubin AST ALT Alkaline Phosphatase Troponin I < 0.01 Total Protein Albumin Globulin Albumin/Globulin Ratio Temp Pulse Resp BP Pulse Ox 98.0 F 67 20 110/66 96 01/21/18 07:35 01/21/18 07:35 01/21/18 07:35 01/21/18 07:35 01/20/18 06:42 Laboratory Results - last 24 hr 01/22/18 07:20 Ammonia 121 H Temp Pulse Resp BP Pulse Ox 98.0 F 75 17 116/83 96 01/21/18 07:35 01/22/18 06:52 01/22/18 06:52 01/22/18 06:52 01/20/18 06:42 DSM 5 Symptoms Update: Shortly pt is 58yo male with reported h/o schizoaffective disorder, denied previous psychiatric admissions, denied h/o suicidal attempts, pt was transferred from the [facility] for evaluation of agitated, aggressive, inappropriate behavior, pt was sexually disinhibited, was trying to kiss other consumers with no permission, was making sexual remarks, was breaking things, was not manageable in the [place]. pt requires meds adjustment, observation. pt was seen and examined today in his room, as per report pt was agitated, was not able to calm down, pt was screaming all day long, was not manageable, PRN of Geodon and ativan given, pt was seen by neuro yesterday, a lot of changes with meds, keppra was d/c. pt was able to eat, but was throwing food on the floor and towards 1:1. when this radio news writer attempted to speak to the pt, pt covered himself with the blanket and became mute. pt is currently on 1:1 for fall precaution, confusion. pt was still in manic stage, was sexually preoccupied, disorganized. DSM 5 Diagnosis: as per h/o schizoaffective disorder (most likely bipolar type) r/o frontotemporal dementia r/o delirium due to metabolic encephalopathy Medication Change: Yes (depakote started, keppra was d/c) Medical Record Reviewed: Yes Consults ordered or reviewed: medical consult neurology consult will be called reason: pt is on Keppra, which could give aggression/agitation pt has h/o Hep C, hepatic encephalopathy this radio news writer would like to d/c keppra and initiate Depakote, but will it be safe for the pt? Neurology consultation appreciated pt was started on depakote keppra was d/c seroquel was decreased geodon if absolute necessary will monitor on liver enzymes 01/22/18 pt was seen by medical team, lactulose will be increased because of ammonia elevation discussed with pediatric medical assistant Mental Status Examination - Cognitive Function Orientation: Person, Situation, Time Memory: Impaired Attention: Poor Concentration: Poor Association: Loose Fund of Knowledge: Poor - Mood Mood: Other ("leave me alone") - Affect Affect: Flat (and irritable) - Speech Speech: Loud - Formal Thought Process Formal Thought Process: Delusions (of grandor), Paranoia - Suicidal Ideation Suicidal Ideation: No - Homicidal Ideation Homicidal Ideation: No Goal/Treatment Plan - Goal/Treatment Plan Need for Continued Stay: Remain at risks for inpatient hospitalization, Severe depression anxiety, Discharge may exacerbated symptoms, Severe functional impairment Progress Toward Problem(s) and Goals/Treatment Plan: milieu/structure/supportive therapy seroquel 50mg bid for psychosis geodon only if absolute need depakote loading dose and 500mg po bid xanax 1mg po tid scheduled 1:1 for safety and falls ativan prn will monitor closely SW consultation for discharge plan and social issues Family involvement Follow up on labs Will monitor closely Pt was educated about risk/benefits and alternatives of medications, coping strategies (safety plan, suicide prevention), relapse prevention, importance of follow up with psychiatrist and therapist, stay away from drugs/alcohol/smoking Estimated Date of D/C: 02/01/18
[2018-01-22] MEDS ORDERED: Divalproex 500 mg ER (ONCE DAILY formulation) PO SCH (16:00)
[2018-01-22] MEDS: Divalproex 500 mg DR(BID formulation) PO SCH (17:19)
[2018-01-23] MEDS: Divalproex 500 mg DR(BID formulation) PO SCH ×3 (09:12→17:02)
--- NOTE | 2018-01-23 13:37 | RAD ---
HISTORY: md requested COMPARISON: 01/16/2018 FINDINGS: LUNGS: No active pulmonary disease. PLEURA: No significant pleural effusion identified, no pneumothorax apparent. CARDIOVASCULAR: Normal. OSSEOUS STRUCTURES: No significant abnormalities. VISUALIZED UPPER ABDOMEN: Normal. OTHER FINDINGS: None. IMPRESSION: No active disease.
--- NOTE | 2018-01-23 13:56 | PCM.PYCHPN ---
Psychiatric Progress Note - Psychiatric Progress Note Patient seen today, length of contact: 30min Patient Chief Complaint: "......" Problems Identified/Issues Discussed: Suicide/ homicide prevention, past psychiatric h/o, current psychiatric symptoms , medical problems, risk/benefits and alternatives of medications, medications compliance, coping strategies, substance abuse h/o, relapse prevention, importance of follow up with psychiatrist and therapist, discharge plan. Medical Problems: chronic hepatitis, htn, encephalopathy and seizure d/o. Diagnostic Results: 01/16/18 12:00 01/16/18 12:00 Lab Results 01/17/18 07:00: RPR Nonreactive 01/17/18 07:00: Free T4 0.85, TSH 3rd Generation 0.65 01/17/18 07:00: Fasting Glucose 75, Triglycerides 30 L, Cholesterol 96 L, LDL Cholesterol Direct 33, HDL Cholesterol 50 01/16/18 12:30: Urine Opiates Screen Negative, Urine Methadone Screen Negative, Ur Barbiturates Screen Negative, Ur Phencyclidine Scrn Negative, Ur Amphetamines Screen Negative, U Benzodiazepines Scrn Negative, U Oth Cocaine Metabols Negative, U Cannabinoids Screen Negative 01/16/18 12:30: Urine Color Yellow, Urine Appearance Clear, Urine pH 6.5, Ur Specific [place] 1.015, Urine Protein Negative, Urine Glucose (UA) Negative, Urine Ketones Negative, Urine Blood Negative, Urine Nitrate Negative, Urine Bilirubin Negative, Urine Urobilinogen 4.0 H, Ur Leukocyte Esterase Negative 01/16/18 12:00: Alcohol, Quantitative < 10 01/16/18 12:00: Salicylates < 1 L, Acetaminophen < 10.0 L 01/16/18 12:00: Sodium 143, Potassium 3.7, Chloride 110 H, Carbon Dioxide 26, Anion Gap 11, BUN 11, Creatinine 0.5 L, Est GFR ( Amer) > 60, Est GFR ( Non-Af Amer) > 60, Random Glucose 81, Calcium 8.9, Total Bilirubin 1.3, AST 50, ALT 49, Alkaline Phosphatase 90, Total Protein 5.6 L, Albumin 2.9 L, Globulin 2.7, Albumin/Globulin Ratio 1.0 L 01/16/18 12:00: WBC 4.0 L, RBC 3.41 L, Hgb 12.4 L, Hct 34.1 L, MCV 100.0, MCH 36.4 H, MCHC 36.4, RDW 14.2, Plt Count 96 L, MPV 10.5, Gran % 48.6 L, Lymph % ( Auto) 36.6 H, [place] % (Auto) 11.4 H, Eos % (Auto) 3.2, Baso % (Auto) 0.2, Gran # 1.96, Lymph # (Auto) 1.5, [place] # (Auto) 0.5, Eos # (Auto) 0.1, Baso # (Auto) 0.01 Vital Signs Temp Pulse Resp BP Pulse Ox 01/18/18 07:00 97.9 F 64 20 126/72 01/17/18 15:00 72 93/58 L 01/17/18 07:29 97.5 F L 63 20 104/68 01/16/18 16:00 98.1 F 69 16 118/71 96 01/16/18 14:17 98 F 60 18 110/60 98 01/16/18 13:00 64 16 110/65 98 01/16/18 11:30 98 F 68 18 105/64 97 Abnormal Lab Results 01/21/18 01/21/18 01/21/18 04:46 05:45 05:45 WBC 3.8 L RBC 3.79 Hgb 13.5 L Hct 37.5 L MCV 98.9 MCH 35.6 H MCHC 36.0 RDW 14.0 Plt Count 95 L MPV 9.8 Gran % 55.6 Lymph % (Auto) 30.9 [place] % (Auto) 10.0 H Eos % (Auto) 3.2 Baso % (Auto) 0.3 Gran # 2.11 Lymph # (Auto) 1.2 [place] # (Auto) 0.4 Eos # (Auto) 0.1 Baso # (Auto) 0.01 pCO2 pO2 HCO3 ABG pH ABG Total CO2 ABG O2 Saturation ABG O2 Content ABG Base Excess ABG Hemoglobin ABG Carboxyhemoglobin POC ABG HHb (Measured) ABG Methemoglobin ABG O2 Capacity Hgb O2 Saturation FiO2 Sodium 142 Potassium 4.1 Chloride 111 H Carbon Dioxide 27 Anion Gap 8 L BUN 17 Creatinine 0.5 L Est GFR ( Amer) > 60 Est GFR (Non-Af Amer) > 60 POC Glucose (mg/dL) 114 H Random Glucose 90 Calcium 9.4 Total Bilirubin 1.3 AST 37 ALT 35 Alkaline Phosphatase 87 Troponin I Total Protein 5.8 Albumin 2.9 L Globulin 2.9 Albumin/Globulin Ratio 1.0 L 01/21/18 01/21/18 05:59 08:15 WBC RBC Hgb Hct MCV MCH MCHC RDW Plt Count MPV Gran % Lymph % (Auto) [place] % (Auto) Eos % (Auto) Baso % (Auto) Gran # Lymph # (Auto) [place] # (Auto) Eos # (Auto) Baso # (Auto) pCO2 39 pO2 74.0 L HCO3 26.5 ABG pH 7.44 ABG Total CO2 27.7 ABG O2 Saturation 97.2 ABG O2 Content 17.6 ABG Base Excess 2.3 ABG Hemoglobin 13.3 ABG Carboxyhemoglobin 2.5 H POC ABG HHb (Measured) 2.7 ABG Methemoglobin 0.9 ABG O2 Capacity 18.1 Hgb O2 Saturation 93.8 L FiO2 21.0 Sodium Potassium Chloride Carbon Dioxide Anion Gap BUN Creatinine Est GFR ( Amer) Est GFR (Non-Af Amer) POC Glucose (mg/dL) Random Glucose Calcium Total Bilirubin AST ALT Alkaline Phosphatase Troponin I < 0.01 Total Protein Albumin Globulin Albumin/Globulin Ratio Temp Pulse Resp BP Pulse Ox 98.0 F 67 20 110/66 96 01/21/18 07:35 01/21/18 07:35 01/21/18 07:35 01/21/18 07:35 01/20/18 06:42 Laboratory Results - last 24 hr 01/22/18 07:20 Ammonia 121 H Temp Pulse Resp BP Pulse Ox 98.0 F 75 17 116/83 96 01/21/18 07:35 01/22/18 06:52 01/22/18 06:52 01/22/18 06:52 01/20/18 06:42 DSM 5 Symptoms Update: Shortly pt is 58yo male with reported h/o schizoaffective disorder, denied previous psychiatric admissions, denied h/o suicidal attempts, pt was transferred from the [facility] for evaluation of agitated, aggressive, inappropriate behavior, pt was sexually disinhibited, was trying to kiss other consumers with no permission, was making sexual remarks, was breaking things, was not manageable in the [place]. pt requires meds adjustment, observation. pt was seen and examined today in his room, as per report pt was less agitated, had a good night sleep, but at am was agitated, at 10am pt was medicated with geodone 10mg . pt was able to eat, pt is currently on 1:1. when this publications writer attempted to speak to the pt, pt covered himself with the blanket and became mute again. pt is currently on 1:1 for fall precaution, confusion. pt was still in manic stage, was sexually preoccupied, disorganized. DSM 5 Diagnosis: as per h/o schizoaffective disorder (most likely bipolar type) r/o frontotemporal dementia r/o delirium due to metabolic encephalopathy Medication Change: Yes (seroquel increased) Medical Record Reviewed: Yes Mental Status Examination - Cognitive Function Orientation: Person, Situation, Time Memory: Impaired Attention: Poor Concentration: Poor Association: Loose Fund of Knowledge: Poor - Mood Mood: Other ("leave me alone") - Affect Affect: Flat (and irritable) - Speech Speech: Loud - Formal Thought Process Formal Thought Process: Delusions (of grandor), Paranoia - Suicidal Ideation Suicidal Ideation: No - Homicidal Ideation Homicidal Ideation: No Goal/Treatment Plan - Goal/Treatment Plan Need for Continued Stay: Remain at risks for inpatient hospitalization, Severe depression anxiety, Discharge may exacerbated symptoms, Severe functional impairment Progress Toward Problem(s) and Goals/Treatment Plan: milieu/structure/supportive therapy seroquel 50mg tid for psychosis geodon only if absolute need depakote loading dose and 500mg po bid xanax 1mg po tid scheduled 1:1 for safety and falls ativan prn will monitor closely SW consultation for discharge plan and social issues Family involvement Follow up on labs Will monitor closely Pt was educated about risk/benefits and alternatives of medications, coping strategies (safety plan, suicide prevention), relapse prevention, importance of follow up with psychiatrist and therapist, stay away from drugs/alcohol/smoking Estimated Date of D/C: 02/01/18
[2018-01-24] MEDS: Divalproex 500 mg DR(BID formulation) PO SCH ×3 (08:40→21:02)
--- NOTE | 2018-01-24 14:59 | PCM.PYCHPN ---
Psychiatric Progress Note - Psychiatric Progress Note Patient seen today, length of contact: 30min Patient Chief Complaint: "I want to go home, I want to go home" Problems Identified/Issues Discussed: Suicide/ homicide prevention, past psychiatric h/o, current psychiatric symptoms , medical problems, risk/benefits and alternatives of medications, medications compliance, coping strategies, substance abuse h/o, relapse prevention, importance of follow up with psychiatrist and therapist, discharge plan. Medical Problems: chronic hepatitis, htn, encephalopathy and seizure d/o. Diagnostic Results: 01/16/18 12:00 01/16/18 12:00 Lab Results 01/17/18 07:00: RPR Nonreactive 01/17/18 07:00: Free T4 0.85, TSH 3rd Generation 0.65 01/17/18 07:00: Fasting Glucose 75, Triglycerides 30 L, Cholesterol 96 L, LDL Cholesterol Direct 33, HDL Cholesterol 50 01/16/18 12:30: Urine Opiates Screen Negative, Urine Methadone Screen Negative, Ur Barbiturates Screen Negative, Ur Phencyclidine Scrn Negative, Ur Amphetamines Screen Negative, U Benzodiazepines Scrn Negative, U Oth Cocaine Metabols Negative, U Cannabinoids Screen Negative 01/16/18 12:30: Urine Color Yellow, Urine Appearance Clear, Urine pH 6.5, Ur Specific [place] 1.015, Urine Protein Negative, Urine Glucose (UA) Negative, Urine Ketones Negative, Urine Blood Negative, Urine Nitrate Negative, Urine Bilirubin Negative, Urine Urobilinogen 4.0 H, Ur Leukocyte Esterase Negative 01/16/18 12:00: Alcohol, Quantitative < 10 01/16/18 12:00: Salicylates < 1 L, Acetaminophen < 10.0 L 01/16/18 12:00: Sodium 143, Potassium 3.7, Chloride 110 H, Carbon Dioxide 26, Anion Gap 11, BUN 11, Creatinine 0.5 L, Est GFR ( Amer) > 60, Est GFR ( Non-Af Amer) > 60, Random Glucose 81, Calcium 8.9, Total Bilirubin 1.3, AST 50, ALT 49, Alkaline Phosphatase 90, Total Protein 5.6 L, Albumin 2.9 L, Globulin 2.7, Albumin/Globulin Ratio 1.0 L 01/16/18 12:00: WBC 4.0 L, RBC 3.41 L, Hgb 12.4 L, Hct 34.1 L, MCV 100.0, MCH 36.4 H, MCHC 36.4, RDW 14.2, Plt Count 96 L, MPV 10.5, Gran % 48.6 L, Lymph % ( Auto) 36.6 H, [place] % (Auto) 11.4 H, Eos % (Auto) 3.2, Baso % (Auto) 0.2, Gran # 1.96, Lymph # (Auto) 1.5, [place] # (Auto) 0.5, Eos # (Auto) 0.1, Baso # (Auto) 0.01 Vital Signs Temp Pulse Resp BP Pulse Ox 01/18/18 07:00 97.9 F 64 20 126/72 01/17/18 15:00 72 93/58 L 01/17/18 07:29 97.5 F L 63 20 104/68 01/16/18 16:00 98.1 F 69 16 118/71 96 01/16/18 14:17 98 F 60 18 110/60 98 01/16/18 13:00 64 16 110/65 98 01/16/18 11:30 98 F 68 18 105/64 97 Abnormal Lab Results 01/21/18 01/21/18 01/21/18 04:46 05:45 05:45 WBC 3.8 L RBC 3.79 Hgb 13.5 L Hct 37.5 L MCV 98.9 MCH 35.6 H MCHC 36.0 RDW 14.0 Plt Count 95 L MPV 9.8 Gran % 55.6 Lymph % (Auto) 30.9 [place] % (Auto) 10.0 H Eos % (Auto) 3.2 Baso % (Auto) 0.3 Gran # 2.11 Lymph # (Auto) 1.2 [place] # (Auto) 0.4 Eos # (Auto) 0.1 Baso # (Auto) 0.01 pCO2 pO2 HCO3 ABG pH ABG Total CO2 ABG O2 Saturation ABG O2 Content ABG Base Excess ABG Hemoglobin ABG Carboxyhemoglobin POC ABG HHb (Measured) ABG Methemoglobin ABG O2 Capacity Hgb O2 Saturation FiO2 Sodium 142 Potassium 4.1 Chloride 111 H Carbon Dioxide 27 Anion Gap 8 L BUN 17 Creatinine 0.5 L Est GFR ( Amer) > 60 Est GFR (Non-Af Amer) > 60 POC Glucose (mg/dL) 114 H Random Glucose 90 Calcium 9.4 Total Bilirubin 1.3 AST 37 ALT 35 Alkaline Phosphatase 87 Troponin I Total Protein 5.8 Albumin 2.9 L Globulin 2.9 Albumin/Globulin Ratio 1.0 L 01/21/18 01/21/18 05:59 08:15 WBC RBC Hgb Hct MCV MCH MCHC RDW Plt Count MPV Gran % Lymph % (Auto) [place] % (Auto) Eos % (Auto) Baso % (Auto) Gran # Lymph # (Auto) [place] # (Auto) Eos # (Auto) Baso # (Auto) pCO2 39 pO2 74.0 L HCO3 26.5 ABG pH 7.44 ABG Total CO2 27.7 ABG O2 Saturation 97.2 ABG O2 Content 17.6 ABG Base Excess 2.3 ABG Hemoglobin 13.3 ABG Carboxyhemoglobin 2.5 H POC ABG HHb (Measured) 2.7 ABG Methemoglobin 0.9 ABG O2 Capacity 18.1 Hgb O2 Saturation 93.8 L FiO2 21.0 Sodium Potassium Chloride Carbon Dioxide Anion Gap BUN Creatinine Est GFR ( Amer) Est GFR (Non-Af Amer) POC Glucose (mg/dL) Random Glucose Calcium Total Bilirubin AST ALT Alkaline Phosphatase Troponin I < 0.01 Total Protein Albumin Globulin Albumin/Globulin Ratio Temp Pulse Resp BP Pulse Ox 98.0 F 67 20 110/66 96 01/21/18 07:35 01/21/18 07:35 01/21/18 07:35 01/21/18 07:35 01/20/18 06:42 Laboratory Results - last 24 hr 01/22/18 07:20 Ammonia 121 H Temp Pulse Resp BP Pulse Ox 98.0 F 75 17 116/83 96 01/21/18 07:35 01/22/18 06:52 01/22/18 06:52 01/22/18 06:52 01/20/18 06:42 DSM 5 Symptoms Update: Shortly pt is 58yo male with reported h/o schizoaffective disorder, denied previous psychiatric admissions, denied h/o suicidal attempts, pt was transferred from the [facility] for evaluation of agitated, aggressive, inappropriate behavior, pt was sexually disinhibited, was trying to kiss other consumers with no permission, was making sexual remarks, was breaking things, was not manageable in the NH. pt requires meds adjustment, observation. pt was seen and examined today in his room, as per report pt was less agitated, had a good night sleep, he shouldn't has episodes of screaming out loud, within a few minutes patient fully sleep. pt was able to eat, this typewriter tester talked to the patient patient started to scream "I want to go home, I want to go home" when this typewriter tester asked where is his home patient was not able to answer pt is currently on 1:1 for fall precaution, confusion. pt was still in manic stage, was sexually preoccupied, disorganized. DSM 5 Diagnosis: as per h/o schizoaffective disorder (most likely bipolar type) r/o frontotemporal dementia r/o delirium due to metabolic encephalopathy Medication Change: Yes (Seroquel increased, Depakote increased) Medical Record Reviewed: Yes Mental Status Examination - Cognitive Function Orientation: Person, Situation, Time Memory: Impaired Attention: Poor Concentration: Poor Association: Loose Fund of Knowledge: Poor - Mood Mood: Other ("leave me alone") - Affect Affect: Flat (and irritable) - Speech Speech: Loud - Formal Thought Process Formal Thought Process: Delusions (of grandor), Paranoia - Suicidal Ideation Suicidal Ideation: No - Homicidal Ideation Homicidal Ideation: No Goal/Treatment Plan - Goal/Treatment Plan Need for Continued Stay: Remain at risks for inpatient hospitalization, Severe depression anxiety, Discharge may exacerbated symptoms, Severe functional impairment Progress Toward Problem(s) and Goals/Treatment Plan: milieu/structure/supportive therapy seroquel 100 mg twice a dayfor psychosis geodon only if absolute need depakote 500mg po bid or mood stabilization xanax 1mg po tid scheduled 1:1 for safety and falls ativan prn will monitor closely SW consultation for discharge plan and social issues Family involvement Follow up on labs Will monitor closely Pt was educated about risk/benefits and alternatives of medications, coping strategies (safety plan, suicide prevention), relapse prevention, importance of follow up with psychiatrist and therapist, stay away from drugs/alcohol/smoking Estimated Date of D/C: 02/01/18
[2018-01-25] MEDS: Divalproex 500 mg DR(BID formulation) PO SCH ×3 (08:34→23:13)
[2018-01-25] MEDS: Divalproex 125 mg EC Sprinkle Cap PO SCH (09:18)
[2018-01-25 09:35] LABS: URINE BILIRUBIN SMALL (NEGATIVE); URINE BLOOD NEGATIVE (NEGATIVE); URINE GLUCOSE (UA) NEGATIVE (NEGATIVE); URINE LEUKOCYTE ESTERASE NEGATIVE Leu/uL (NEGATIVE); URINE PROTEIN NEGATIVE mg/dL (<30 mg/dL); URINE UROBILINOGEN >=8.0 E.U./dL (<1 E.U./dL)
[2018-01-25 09:39] LABS: URINE APPEARANCE CLEAR (CLEAR); URINE COLOR DARK YELLOW (YELLOW)
[2018-01-25 10:27] LABS: 10-HYDROXYCARBAZEPINE 8.1 mcg/mL (8.0-35.0)
--- NOTE | 2018-01-25 17:17 | PCM.PYCHPN ---
Psychiatric Progress Note - Psychiatric Progress Note Patient seen today, length of contact: 30min Patient Chief Complaint: "help me help me...., aaaaaa" Problems Identified/Issues Discussed: Suicide/ homicide prevention, past psychiatric h/o, current psychiatric symptoms , medical problems, risk/benefits and alternatives of medications, medications compliance, coping strategies, substance abuse h/o, relapse prevention, importance of follow up with psychiatrist and therapist, discharge plan. Medical Problems: chronic hepatitis, htn, encephalopathy and seizure d/o. R/O FRONTOTEMPORAL DEMENTIA Diagnostic Results: 01/16/18 12:00 01/16/18 12:00 Lab Results 01/17/18 07:00: RPR Nonreactive 01/17/18 07:00: Free T4 0.85, TSH 3rd Generation 0.65 01/17/18 07:00: Fasting Glucose 75, Triglycerides 30 L, Cholesterol 96 L, LDL Cholesterol Direct 33, HDL Cholesterol 50 01/16/18 12:30: Urine Opiates Screen Negative, Urine Methadone Screen Negative, Ur Barbiturates Screen Negative, Ur Phencyclidine Scrn Negative, Ur Amphetamines Screen Negative, U Benzodiazepines Scrn Negative, U Oth Cocaine Metabols Negative, U Cannabinoids Screen Negative 01/16/18 12:30: Urine Color Yellow, Urine Appearance Clear, Urine pH 6.5, Ur Specific [place] 1.015, Urine Protein Negative, Urine Glucose (UA) Negative, Urine Ketones Negative, Urine Blood Negative, Urine Nitrate Negative, Urine Bilirubin Negative, Urine Urobilinogen 4.0 H, Ur Leukocyte Esterase Negative 01/16/18 12:00: Alcohol, Quantitative < 10 01/16/18 12:00: Salicylates < 1 L, Acetaminophen < 10.0 L 01/16/18 12:00: Sodium 143, Potassium 3.7, Chloride 110 H, Carbon Dioxide 26, Anion Gap 11, BUN 11, Creatinine 0.5 L, Est GFR ( Amer) > 60, Est GFR ( Non-Af Amer) > 60, Random Glucose 81, Calcium 8.9, Total Bilirubin 1.3, AST 50, ALT 49, Alkaline Phosphatase 90, Total Protein 5.6 L, Albumin 2.9 L, Globulin 2.7, Albumin/Globulin Ratio 1.0 L 01/16/18 12:00: WBC 4.0 L, RBC 3.41 L, Hgb 12.4 L, Hct 34.1 L, MCV 100.0, MCH 36.4 H, MCHC 36.4, RDW 14.2, Plt Count 96 L, MPV 10.5, Gran % 48.6 L, Lymph % ( Auto) 36.6 H, [place] % (Auto) 11.4 H, Eos % (Auto) 3.2, Baso % (Auto) 0.2, Gran # 1.96, Lymph # (Auto) 1.5, [place] # (Auto) 0.5, Eos # (Auto) 0.1, Baso # (Auto) 0.01 Vital Signs Temp Pulse Resp BP Pulse Ox 01/18/18 07:00 97.9 F 64 20 126/72 01/17/18 15:00 72 93/58 L 01/17/18 07:29 97.5 F L 63 20 104/68 01/16/18 16:00 98.1 F 69 16 118/71 96 01/16/18 14:17 98 F 60 18 110/60 98 01/16/18 13:00 64 16 110/65 98 01/16/18 11:30 98 F 68 18 105/64 97 Abnormal Lab Results 01/21/18 01/21/18 01/21/18 04:46 05:45 05:45 WBC 3.8 L RBC 3.79 Hgb 13.5 L Hct 37.5 L MCV 98.9 MCH 35.6 H MCHC 36.0 RDW 14.0 Plt Count 95 L MPV 9.8 Gran % 55.6 Lymph % (Auto) 30.9 [place] % (Auto) 10.0 H Eos % (Auto) 3.2 Baso % (Auto) 0.3 Gran # 2.11 Lymph # (Auto) 1.2 [place] # (Auto) 0.4 Eos # (Auto) 0.1 Baso # (Auto) 0.01 pCO2 pO2 HCO3 ABG pH ABG Total CO2 ABG O2 Saturation ABG O2 Content ABG Base Excess ABG Hemoglobin ABG Carboxyhemoglobin POC ABG HHb (Measured) ABG Methemoglobin ABG O2 Capacity Hgb O2 Saturation FiO2 Sodium 142 Potassium 4.1 Chloride 111 H Carbon Dioxide 27 Anion Gap 8 L BUN 17 Creatinine 0.5 L Est GFR ( Amer) > 60 Est GFR (Non-Af Amer) > 60 POC Glucose (mg/dL) 114 H Random Glucose 90 Calcium 9.4 Total Bilirubin 1.3 AST 37 ALT 35 Alkaline Phosphatase 87 Troponin I Total Protein 5.8 Albumin 2.9 L Globulin 2.9 Albumin/Globulin Ratio 1.0 L 01/21/18 01/21/18 05:59 08:15 WBC RBC Hgb Hct MCV MCH MCHC RDW Plt Count MPV Gran % Lymph % (Auto) [place] % (Auto) Eos % (Auto) Baso % (Auto) Gran # Lymph # (Auto) [place] # (Auto) Eos # (Auto) Baso # (Auto) pCO2 39 pO2 74.0 L HCO3 26.5 ABG pH 7.44 ABG Total CO2 27.7 ABG O2 Saturation 97.2 ABG O2 Content 17.6 ABG Base Excess 2.3 ABG Hemoglobin 13.3 ABG Carboxyhemoglobin 2.5 H POC ABG HHb (Measured) 2.7 ABG Methemoglobin 0.9 ABG O2 Capacity 18.1 Hgb O2 Saturation 93.8 L FiO2 21.0 Sodium Potassium Chloride Carbon Dioxide Anion Gap BUN Creatinine Est GFR ( Amer) Est GFR (Non-Af Amer) POC Glucose (mg/dL) Random Glucose Calcium Total Bilirubin AST ALT Alkaline Phosphatase Troponin I < 0.01 Total Protein Albumin Globulin Albumin/Globulin Ratio Temp Pulse Resp BP Pulse Ox 98.0 F 67 20 110/66 96 01/21/18 07:35 01/21/18 07:35 01/21/18 07:35 01/21/18 07:35 01/20/18 06:42 Laboratory Results - last 24 hr 01/22/18 07:20 Ammonia 121 H Temp Pulse Resp BP Pulse Ox 98.0 F 75 17 116/83 96 01/21/18 07:35 01/22/18 06:52 01/22/18 06:52 01/22/18 06:52 01/20/18 06:42 Temp Pulse Resp BP Pulse Ox 98.6 F 70 16 100/68 96 01/25/18 09:40 01/25/18 09:40 01/25/18 09:40 01/25/18 09:40 01/20/18 06:42 DSM 5 Symptoms Update: Shortly pt is 58yo male with reported h/o schizoaffective disorder, denied previous psychiatric admissions, denied h/o suicidal attempts, pt was transferred from the [facility] for evaluation of agitated, aggressive, inappropriate behavior, pt was sexually disinhibited, was trying to kiss other consumers with no permission, was making sexual remarks, was breaking things, was not manageable in the NH. pt requires meds adjustment, observation. pt was seen and examined today in his room, as per report pt EITHER SCREAMING OUT LOUD, OR STATUS POST WHEN NECESSARY MEDICATIONS, most likely pt has fronto- temporal dementia. yesterday pt tried to participate in groups, patient was asking inappropriate questions to young female thinking that she is a hooker "how much I need to pay?", pt was redirected immediately. pt is currently on 1:1 for fall precaution, confusion. pt was still in manic stage, was sexually preoccupied, disorganized. DSM 5 Diagnosis: as per h/o schizoaffective disorder (most likely bipolar type) r/o frontotemporal dementia r/o delirium due to metabolic encephalopathy Medication Change: Yes (Zyprexa was started, trazodone was increased, Seroquel discontinued) Medical Record Reviewed: Yes Mental Status Examination - Cognitive Function Orientation: Person, Situation, Time Memory: Impaired Attention: Poor Concentration: Poor Association: Loose Fund of Knowledge: Poor - Mood Mood: Other ("leave me alone") - Affect Affect: Flat (and irritable) - Speech Speech: Loud - Formal Thought Process Formal Thought Process: Delusions (of grandor), Paranoia - Suicidal Ideation Suicidal Ideation: No - Homicidal Ideation Homicidal Ideation: No Goal/Treatment Plan - Goal/Treatment Plan Need for Continued Stay: Remain at risks for inpatient hospitalization, Severe depression anxiety, Discharge may exacerbated symptoms, Severe functional impairment Progress Toward Problem(s) and Goals/Treatment Plan: milieu/structure/supportive therapy based on literature, zyprexa, zoloft and trazodone 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 trazodone will be increased, Seroquel will be discontinued, Zyprexa Zydis will be started, if needed will implement Zoloft. geodon only if absolute need depakote 500mg po bid or mood stabilization xanax 1mg po tid scheduled 1:1 for safety and falls ativan prn will monitor closely SW consultation for discharge plan and social issues Family involvement Follow up on labs Will monitor closely Pt was educated about risk/benefits and alternatives of medications, coping strategies (safety plan, suicide prevention), relapse prevention, importance of follow up with psychiatrist and therapist, stay away from drugs/alcohol/smoking Estimated Date of D/C: 02/01/18
[2018-01-25] MEDS: OLANZapine 5 mg Disintegrating Tab PO SCH (18:10)
[2018-01-26 07:06] VITALS: RESP 20
[2018-01-26] MEDS: OLANZapine 5 mg Disintegrating Tab PO SCH ×3 (09:30→15:52)
[2018-01-26] MEDS: Divalproex 500 mg DR(BID formulation) PO SCH ×4 (09:31→21:29)
--- NOTE | 2018-01-26 13:30 | PCM.PYCHPN ---
Psychiatric Progress Note - Psychiatric Progress Note Patient seen today, length of contact: 30min Patient Chief Complaint: "I am alright" Problems Identified/Issues Discussed: Suicide/ homicide prevention, past psychiatric h/o, current psychiatric symptoms , medical problems, risk/benefits and alternatives of medications, medications compliance, coping strategies, substance abuse h/o, relapse prevention, importance of follow up with psychiatrist and therapist, discharge plan. Medical Problems: chronic hepatitis, htn, encephalopathy and seizure d/o. R/O FRONTOTEMPORAL DEMENTIA Diagnostic Results: 01/16/18 12:00 01/16/18 12:00 Lab Results 01/17/18 07:00: RPR Nonreactive 01/17/18 07:00: Free T4 0.85, TSH 3rd Generation 0.65 01/17/18 07:00: Fasting Glucose 75, Triglycerides 30 L, Cholesterol 96 L, LDL Cholesterol Direct 33, HDL Cholesterol 50 01/16/18 12:30: Urine Opiates Screen Negative, Urine Methadone Screen Negative, Ur Barbiturates Screen Negative, Ur Phencyclidine Scrn Negative, Ur Amphetamines Screen Negative, U Benzodiazepines Scrn Negative, U Oth Cocaine Metabols Negative, U Cannabinoids Screen Negative 01/16/18 12:30: Urine Color Yellow, Urine Appearance Clear, Urine pH 6.5, Ur Specific [place] 1.015, Urine Protein Negative, Urine Glucose (UA) Negative, Urine Ketones Negative, Urine Blood Negative, Urine Nitrate Negative, Urine Bilirubin Negative, Urine Urobilinogen 4.0 H, Ur Leukocyte Esterase Negative 01/16/18 12:00: Alcohol, Quantitative < 10 01/16/18 12:00: Salicylates < 1 L, Acetaminophen < 10.0 L 01/16/18 12:00: Sodium 143, Potassium 3.7, Chloride 110 H, Carbon Dioxide 26, Anion Gap 11, BUN 11, Creatinine 0.5 L, Est GFR ( Amer) > 60, Est GFR ( Non-Af Amer) > 60, Random Glucose 81, Calcium 8.9, Total Bilirubin 1.3, AST 50, ALT 49, Alkaline Phosphatase 90, Total Protein 5.6 L, Albumin 2.9 L, Globulin 2.7, Albumin/Globulin Ratio 1.0 L 01/16/18 12:00: WBC 4.0 L, RBC 3.41 L, Hgb 12.4 L, Hct 34.1 L, MCV 100.0, MCH 36.4 H, MCHC 36.4, RDW 14.2, Plt Count 96 L, MPV 10.5, Gran % 48.6 L, Lymph % ( Auto) 36.6 H, [place] % (Auto) 11.4 H, Eos % (Auto) 3.2, Baso % (Auto) 0.2, Gran # 1.96, Lymph # (Auto) 1.5, [place] # (Auto) 0.5, Eos # (Auto) 0.1, Baso # (Auto) 0.01 Vital Signs Temp Pulse Resp BP Pulse Ox 01/18/18 07:00 97.9 F 64 20 126/72 01/17/18 15:00 72 93/58 L 01/17/18 07:29 97.5 F L 63 20 104/68 01/16/18 16:00 98.1 F 69 16 118/71 96 01/16/18 14:17 98 F 60 18 110/60 98 01/16/18 13:00 64 16 110/65 98 01/16/18 11:30 98 F 68 18 105/64 97 Abnormal Lab Results 01/21/18 01/21/18 01/21/18 04:46 05:45 05:45 WBC 3.8 L RBC 3.79 Hgb 13.5 L Hct 37.5 L MCV 98.9 MCH 35.6 H MCHC 36.0 RDW 14.0 Plt Count 95 L MPV 9.8 Gran % 55.6 Lymph % (Auto) 30.9 [place] % (Auto) 10.0 H Eos % (Auto) 3.2 Baso % (Auto) 0.3 Gran # 2.11 Lymph # (Auto) 1.2 [place] # (Auto) 0.4 Eos # (Auto) 0.1 Baso # (Auto) 0.01 pCO2 pO2 HCO3 ABG pH ABG Total CO2 ABG O2 Saturation ABG O2 Content ABG Base Excess ABG Hemoglobin ABG Carboxyhemoglobin POC ABG HHb (Measured) ABG Methemoglobin ABG O2 Capacity Hgb O2 Saturation FiO2 Sodium 142 Potassium 4.1 Chloride 111 H Carbon Dioxide 27 Anion Gap 8 L BUN 17 Creatinine 0.5 L Est GFR ( Amer) > 60 Est GFR (Non-Af Amer) > 60 POC Glucose (mg/dL) 114 H Random Glucose 90 Calcium 9.4 Total Bilirubin 1.3 AST 37 ALT 35 Alkaline Phosphatase 87 Troponin I Total Protein 5.8 Albumin 2.9 L Globulin 2.9 Albumin/Globulin Ratio 1.0 L 01/21/18 01/21/18 05:59 08:15 WBC RBC Hgb Hct MCV MCH MCHC RDW Plt Count MPV Gran % Lymph % (Auto) [place] % (Auto) Eos % (Auto) Baso % (Auto) Gran # Lymph # (Auto) [place] # (Auto) Eos # (Auto) Baso # (Auto) pCO2 39 pO2 74.0 L HCO3 26.5 ABG pH 7.44 ABG Total CO2 27.7 ABG O2 Saturation 97.2 ABG O2 Content 17.6 ABG Base Excess 2.3 ABG Hemoglobin 13.3 ABG Carboxyhemoglobin 2.5 H POC ABG HHb (Measured) 2.7 ABG Methemoglobin 0.9 ABG O2 Capacity 18.1 Hgb O2 Saturation 93.8 L FiO2 21.0 Sodium Potassium Chloride Carbon Dioxide Anion Gap BUN Creatinine Est GFR ( Amer) Est GFR (Non-Af Amer) POC Glucose (mg/dL) Random Glucose Calcium Total Bilirubin AST ALT Alkaline Phosphatase Troponin I < 0.01 Total Protein Albumin Globulin Albumin/Globulin Ratio Temp Pulse Resp BP Pulse Ox 98.0 F 67 20 110/66 96 01/21/18 07:35 01/21/18 07:35 01/21/18 07:35 01/21/18 07:35 01/20/18 06:42 Laboratory Results - last 24 hr 01/22/18 07:20 Ammonia 121 H Temp Pulse Resp BP Pulse Ox 98.0 F 75 17 116/83 96 01/21/18 07:35 01/22/18 06:52 01/22/18 06:52 01/22/18 06:52 01/20/18 06:42 Temp Pulse Resp BP Pulse Ox 98.6 F 70 16 100/68 96 01/25/18 09:40 01/25/18 09:40 01/25/18 09:40 01/25/18 09:40 01/20/18 06:42 DSM 5 Symptoms Update: Shortly pt is 58yo male with reported h/o schizoaffective disorder, denied previous psychiatric admissions, denied h/o suicidal attempts, pt was transferred from the [facility] for evaluation of agitated, aggressive, inappropriate behavior, pt was sexually disinhibited, was trying to kiss other consumers with no permission, was making sexual remarks, was breaking things, was not manageable in the NH. pt requires meds adjustment, observation. pt was seen and examined today in his room, patient was washed, personal hygiene improved, patient appears to be drowsy, but easily arousable, patient has only 2 times will of behavior either patient is screaming on top of his lungs versus deeply medicated. Patient still has disinhibited behavior, cursing , screaming, making sexual remarks. As per staff after this life underwriter adjusted medications patient has some mild improvement with his presentation. pt is currently on 1:1 for fall precaution, confusion. pt was still in manic stage, was sexually preoccupied, disorganized. DSM 5 Diagnosis: as per h/o schizoaffective disorder (most likely bipolar type) r/o frontotemporal dementia r/o delirium due to metabolic encephalopathy Medication Change: Yes (meds were adjusted yesterday) Medical Record Reviewed: Yes Consults ordered or reviewed: medical consult neurology consult will be called reason: pt is on Keppra, which could give aggression/agitation pt has h/o Hep C, hepatic encephalopathy this life underwriter would like to d/c keppra and initiate Depakote, but will it be safe for the pt? Neurology consultation appreciated pt was started on depakote keppra was d/c seroquel was decreased geodon if absolute necessary will monitor on liver enzymes 01/22/18 pt was seen by medical team, lactulose will be increased because of ammonia elevation discussed with medical aide Mental Status Examination - Cognitive Function Orientation: Person, Situation, Time Memory: Impaired Attention: Poor Concentration: Poor Association: Loose Fund of Knowledge: Poor - Mood Mood: Other ("leave me alone") - Affect Affect: Flat (and irritable) - Speech Speech: Loud - Formal Thought Process Formal Thought Process: Delusions (of grandor), Paranoia - Suicidal Ideation Suicidal Ideation: No - Homicidal Ideation Homicidal Ideation: No Goal/Treatment Plan - Goal/Treatment Plan Need for Continued Stay: Remain at risks for inpatient hospitalization, Severe depression anxiety, Discharge may exacerbated symptoms, Severe functional impairment Progress Toward Problem(s) and Goals/Treatment Plan: milieu/structure/supportive therapy based on literature, zyprexa, zoloft and trazodone 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 trazodone will be increased, Seroquel will be Zyprexa Zydis 5mg po bid if needed will implement Zoloft. geodon only if absolute need depakote 500mg po bid or mood stabilization xanax 1mg po tid scheduled 1:1 for safety and falls ativan prn will monitor closely SW consultation for discharge plan and social issues Family involvement Follow up on labs Will monitor closely Pt was educated about risk/benefits and alternatives of medications, coping strategies (safety plan, suicide prevention), relapse prevention, importance of follow up with psychiatrist and therapist, stay away from drugs/alcohol/smoking will monitor closely Estimated Date of D/C: 02/01/18
[2018-01-27 08:08] LABS: BASO # 0.01 K/mm3 (0.0-2.0); BASO % 0.2 % (0.0-3.0); EOS # 0.2 (0.0-0.7); GRAN # 2.75 (1.4-6.5); GRAN % 55.9 % (50.0-68.0); HEMOGLOBIN 14.5 g/dL (14.0-18.0); LYMPH # 1.5 (1.2-3.4); LYMPH % 31.2 % (22.0-35.0); MEAN CELL VOLUME 96.3 fl (80.0-105.0); MEAN CORPUSCULAR HEMOGLOBIN 35.8 pg (25.0-35.0); MEAN CORPUSCULAR HGB CONC 37.2 g/dl (31.0-37.0); MEAN PLATELET VOLUME 10.1 fl (7.0-11.0); MONO # 0.5 (0.1-0.6); MONO % 9.7 % (1.0-6.0); RBC 4.05 10^6/uL (3.5-6.1); RED CELL DISTRIBUTION WIDTH 13.3 % (11.5-14.5); WHITE BLOOD COUNT 4.9 10^3/ul (4.5-11.0)
[2018-01-27 08:27] LABS: ALBUMIN 3.4 g/dL (3.0-4.8); ALT/SGPT 27 U/L (7-56); AST/SGOT 38 U/L (17-59); BLOOD UREA NITROGEN 16 mg/dL (7-21); CALCIUM 9.8 mg/dL (8.4-10.5); GFR AFRICAN-AMERICAN > 60; GFR NON-AFRICAN AMERICAN > 60
[2018-01-27] MEDS: OLANZapine 5 mg Disintegrating Tab PO SCH ×2 (08:41→15:43)
[2018-01-27] MEDS: Divalproex 500 mg DR(BID formulation) PO SCH ×3 (08:41→23:06)
--- NOTE | 2018-01-27 13:17 | PCM.PYCHPN ---
Psychiatric Progress Note - Psychiatric Progress Note Patient seen today, length of contact: 30min Patient Chief Complaint: "I am alright" Problems Identified/Issues Discussed: Suicide/ homicide prevention, past psychiatric h/o, current psychiatric symptoms , medical problems, risk/benefits and alternatives of medications, medications compliance, coping strategies, substance abuse h/o, relapse prevention, importance of follow up with psychiatrist and therapist, discharge plan. Medical Problems: chronic hepatitis, htn, encephalopathy and seizure d/o. R/O FRONTOTEMPORAL DEMENTIA Diagnostic Results: 01/16/18 12:00 01/16/18 12:00 Lab Results 01/17/18 07:00: RPR Nonreactive 01/17/18 07:00: Free T4 0.85, TSH 3rd Generation 0.65 01/17/18 07:00: Fasting Glucose 75, Triglycerides 30 L, Cholesterol 96 L, LDL Cholesterol Direct 33, HDL Cholesterol 50 01/16/18 12:30: Urine Opiates Screen Negative, Urine Methadone Screen Negative, Ur Barbiturates Screen Negative, Ur Phencyclidine Scrn Negative, Ur Amphetamines Screen Negative, U Benzodiazepines Scrn Negative, U Oth Cocaine Metabols Negative, U Cannabinoids Screen Negative 01/16/18 12:30: Urine Color Yellow, Urine Appearance Clear, Urine pH 6.5, Ur Specific [place] 1.015, Urine Protein Negative, Urine Glucose (UA) Negative, Urine Ketones Negative, Urine Blood Negative, Urine Nitrate Negative, Urine Bilirubin Negative, Urine Urobilinogen 4.0 H, Ur Leukocyte Esterase Negative 01/16/18 12:00: Alcohol, Quantitative < 10 01/16/18 12:00: Salicylates < 1 L, Acetaminophen < 10.0 L 01/16/18 12:00: Sodium 143, Potassium 3.7, Chloride 110 H, Carbon Dioxide 26, Anion Gap 11, BUN 11, Creatinine 0.5 L, Est GFR ( Amer) > 60, Est GFR ( Non-Af Amer) > 60, Random Glucose 81, Calcium 8.9, Total Bilirubin 1.3, AST 50, ALT 49, Alkaline Phosphatase 90, Total Protein 5.6 L, Albumin 2.9 L, Globulin 2.7, Albumin/Globulin Ratio 1.0 L 01/16/18 12:00: WBC 4.0 L, RBC 3.41 L, Hgb 12.4 L, Hct 34.1 L, MCV 100.0, MCH 36.4 H, MCHC 36.4, RDW 14.2, Plt Count 96 L, MPV 10.5, Gran % 48.6 L, Lymph % ( Auto) 36.6 H, [place] % (Auto) 11.4 H, Eos % (Auto) 3.2, Baso % (Auto) 0.2, Gran # 1.96, Lymph # (Auto) 1.5, [place] # (Auto) 0.5, Eos # (Auto) 0.1, Baso # (Auto) 0.01 Vital Signs Temp Pulse Resp BP Pulse Ox 01/18/18 07:00 97.9 F 64 20 126/72 01/17/18 15:00 72 93/58 L 01/17/18 07:29 97.5 F L 63 20 104/68 01/16/18 16:00 98.1 F 69 16 118/71 96 01/16/18 14:17 98 F 60 18 110/60 98 01/16/18 13:00 64 16 110/65 98 01/16/18 11:30 98 F 68 18 105/64 97 Abnormal Lab Results 01/21/18 01/21/18 01/21/18 04:46 05:45 05:45 WBC 3.8 L RBC 3.79 Hgb 13.5 L Hct 37.5 L MCV 98.9 MCH 35.6 H MCHC 36.0 RDW 14.0 Plt Count 95 L MPV 9.8 Gran % 55.6 Lymph % (Auto) 30.9 [place] % (Auto) 10.0 H Eos % (Auto) 3.2 Baso % (Auto) 0.3 Gran # 2.11 Lymph # (Auto) 1.2 [place] # (Auto) 0.4 Eos # (Auto) 0.1 Baso # (Auto) 0.01 pCO2 pO2 HCO3 ABG pH ABG Total CO2 ABG O2 Saturation ABG O2 Content ABG Base Excess ABG Hemoglobin ABG Carboxyhemoglobin POC ABG HHb (Measured) ABG Methemoglobin ABG O2 Capacity Hgb O2 Saturation FiO2 Sodium 142 Potassium 4.1 Chloride 111 H Carbon Dioxide 27 Anion Gap 8 L BUN 17 Creatinine 0.5 L Est GFR ( Amer) > 60 Est GFR (Non-Af Amer) > 60 POC Glucose (mg/dL) 114 H Random Glucose 90 Calcium 9.4 Total Bilirubin 1.3 AST 37 ALT 35 Alkaline Phosphatase 87 Troponin I Total Protein 5.8 Albumin 2.9 L Globulin 2.9 Albumin/Globulin Ratio 1.0 L 01/21/18 01/21/18 05:59 08:15 WBC RBC Hgb Hct MCV MCH MCHC RDW Plt Count MPV Gran % Lymph % (Auto) [place] % (Auto) Eos % (Auto) Baso % (Auto) Gran # Lymph # (Auto) [place] # (Auto) Eos # (Auto) Baso # (Auto) pCO2 39 pO2 74.0 L HCO3 26.5 ABG pH 7.44 ABG Total CO2 27.7 ABG O2 Saturation 97.2 ABG O2 Content 17.6 ABG Base Excess 2.3 ABG Hemoglobin 13.3 ABG Carboxyhemoglobin 2.5 H POC ABG HHb (Measured) 2.7 ABG Methemoglobin 0.9 ABG O2 Capacity 18.1 Hgb O2 Saturation 93.8 L FiO2 21.0 Sodium Potassium Chloride Carbon Dioxide Anion Gap BUN Creatinine Est GFR ( Amer) Est GFR (Non-Af Amer) POC Glucose (mg/dL) Random Glucose Calcium Total Bilirubin AST ALT Alkaline Phosphatase Troponin I < 0.01 Total Protein Albumin Globulin Albumin/Globulin Ratio Temp Pulse Resp BP Pulse Ox 98.0 F 67 20 110/66 96 01/21/18 07:35 01/21/18 07:35 01/21/18 07:35 01/21/18 07:35 01/20/18 06:42 Laboratory Results - last 24 hr 01/22/18 07:20 Ammonia 121 H Temp Pulse Resp BP Pulse Ox 98.0 F 75 17 116/83 96 01/21/18 07:35 01/22/18 06:52 01/22/18 06:52 01/22/18 06:52 01/20/18 06:42 Temp Pulse Resp BP Pulse Ox 98.6 F 70 16 100/68 96 01/25/18 09:40 01/25/18 09:40 01/25/18 09:40 01/25/18 09:40 01/20/18 06:42 Abnormal Lab Results 01/27/18 01/27/18 01/27/18 05:00 07:00 07:00 WBC 4.9 D RBC 4.05 Hgb 14.5 Hct 39.0 L MCV 96.3 MCH 35.8 H MCHC 37.2 H RDW 13.3 Plt Count 94 L MPV 10.1 Gran % 55.9 Lymph % (Auto) 31.2 [place] % (Auto) 9.7 H Eos % (Auto) 3.0 Baso % (Auto) 0.2 Gran # 2.75 Lymph # (Auto) 1.5 [place] # (Auto) 0.5 Eos # (Auto) 0.2 Baso # (Auto) 0.01 Sodium 144 Potassium 4.0 Chloride 110 H Carbon Dioxide 27 Anion Gap 12 BUN 16 Creatinine 0.5 L Est GFR ( Amer) > 60 Est GFR (Non-Af Amer) > 60 Random Glucose 90 Calcium 9.8 Total Bilirubin 2.4 H AST 38 ALT 27 Alkaline Phosphatase 87 Ammonia Total Protein 6.8 Albumin 3.4 Globulin 3.4 Albumin/Globulin Ratio 1.0 L Valproic Acid 79 01/27/18 07:00 WBC RBC Hgb Hct MCV MCH MCHC RDW Plt Count MPV Gran % Lymph % (Auto) [place] % (Auto) Eos % (Auto) Baso % (Auto) Gran # Lymph # (Auto) [place] # (Auto) Eos # (Auto) Baso # (Auto) Sodium Potassium Chloride Carbon Dioxide Anion Gap BUN Creatinine Est GFR ( Amer) Est GFR (Non-Af Amer) Random Glucose Calcium Total Bilirubin AST ALT Alkaline Phosphatase Ammonia 116 H Total Protein Albumin Globulin Albumin/Globulin Ratio Valproic Acid Temp Pulse Resp BP Pulse Ox 98.8 F 82 20 118/80 96 01/27/18 07:44 01/27/18 07:44 01/27/18 07:44 01/27/18 07:44 01/20/18 06:42 DSM 5 Symptoms Update: Shortly pt is 58yo male with reported h/o schizoaffective disorder, denied previous psychiatric admissions, denied h/o suicidal attempts, pt was transferred from the [facility] for evaluation of agitated, aggressive, inappropriate behavior, pt was sexually disinhibited, was trying to kiss other consumers with no permission, was making sexual remarks, was breaking things, was not manageable in the NH. pt requires meds adjustment, observation. pt was seen and examined today in his room, patient was sleeping, as per staff pt required IM of Geodon over night because pt was screaming/yelling and agitated, pt has only 2 types of behavior either patient is screaming on top of his lungs versus deeply sleeping, as per staff yesterday pt was able to stay in community area for a few times and was not agitated, which gives impression that patient has some improvement with his presentation. pt is currently on 1:1 for fall precaution, confusion. DSM 5 Diagnosis: as per h/o schizoaffective disorder (most likely bipolar type) r/o frontotemporal dementia r/o delirium due to metabolic encephalopathy Medication Change: Yes (trazodone increased) Medical Record Reviewed: Yes Consults ordered or reviewed: medical consult neurology consult will be called reason: pt is on Keppra, which could give aggression/agitation pt has h/o Hep C, hepatic encephalopathy this food writer would like to d/c keppra and initiate Depakote, but will it be safe for the pt? Neurology consultation appreciated pt was started on depakote keppra was d/c seroquel was decreased geodon if absolute necessary will monitor on liver enzymes 01/22/18 pt was seen by medical team, lactulose will be increased because of ammonia elevation discussed with clinical medical transcriptionist Mental Status Examination - Cognitive Function Orientation: Person, Situation, Time Memory: Impaired Attention: Poor Concentration: Poor Association: Loose Fund of Knowledge: Poor - Mood Mood: Other ("leave me alone") - Affect Affect: Flat (and irritable) - Speech Speech: Loud - Formal Thought Process Formal Thought Process: Delusions (of grandor), Paranoia - Suicidal Ideation Suicidal Ideation: No - Homicidal Ideation Homicidal Ideation: No Goal/Treatment Plan - Goal/Treatment Plan Need for Continued Stay: Remain at risks for inpatient hospitalization, Severe depression anxiety, Discharge may exacerbated symptoms, Severe functional impairment Progress Toward Problem(s) and Goals/Treatment Plan: milieu/structure/supportive therapy based on literature, zyprexa, zoloft and trazodone 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 trazodone will be increased, Seroquel will be Zyprexa Zydis 5mg po bid if needed will implement Zoloft. geodon only if absolute need depakote 500mg po bid and hs mood stabilization depakote level 01/27/18 was 79 xanax 1mg po tid scheduled 1:1 for safety and falls ativan prn will monitor closely SW consultation for discharge plan and social issues Family involvement Follow up on labs Will monitor closely Pt was educated about risk/benefits and alternatives of medications, coping strategies (safety plan, suicide prevention), relapse prevention, importance of follow up with psychiatrist and therapist, stay away from drugs/alcohol/smoking will monitor closely Estimated Date of D/C: 02/01/18
[2018-01-28] MEDS: Divalproex 500 mg DR(BID formulation) PO SCH ×3 (08:31→21:57)
[2018-01-28] MEDS: OLANZapine 5 mg Disintegrating Tab PO SCH ×2 (08:31→15:43)
--- NOTE | 2018-01-28 16:15 | PCM.PYCHPN ---
Psychiatric Progress Note - Psychiatric Progress Note Patient seen today, length of contact: 30min Patient Chief Complaint: "I want to go home, I want to go home" Problems Identified/Issues Discussed: Suicide/ homicide prevention, past psychiatric h/o, current psychiatric symptoms , medical problems, risk/benefits and alternatives of medications, medications compliance, coping strategies, substance abuse h/o, relapse prevention, importance of follow up with psychiatrist and therapist, discharge plan. Medical Problems: chronic hepatitis, htn, encephalopathy and seizure d/o. R/O FRONTOTEMPORAL DEMENTIA Diagnostic Results: 01/16/18 12:00 01/16/18 12:00 Lab Results 01/17/18 07:00: RPR Nonreactive 01/17/18 07:00: Free T4 0.85, TSH 3rd Generation 0.65 01/17/18 07:00: Fasting Glucose 75, Triglycerides 30 L, Cholesterol 96 L, LDL Cholesterol Direct 33, HDL Cholesterol 50 01/16/18 12:30: Urine Opiates Screen Negative, Urine Methadone Screen Negative, Ur Barbiturates Screen Negative, Ur Phencyclidine Scrn Negative, Ur Amphetamines Screen Negative, U Benzodiazepines Scrn Negative, U Oth Cocaine Metabols Negative, U Cannabinoids Screen Negative 01/16/18 12:30: Urine Color Yellow, Urine Appearance Clear, Urine pH 6.5, Ur Specific [place] 1.015, Urine Protein Negative, Urine Glucose (UA) Negative, Urine Ketones Negative, Urine Blood Negative, Urine Nitrate Negative, Urine Bilirubin Negative, Urine Urobilinogen 4.0 H, Ur Leukocyte Esterase Negative 01/16/18 12:00: Alcohol, Quantitative < 10 01/16/18 12:00: Salicylates < 1 L, Acetaminophen < 10.0 L 01/16/18 12:00: Sodium 143, Potassium 3.7, Chloride 110 H, Carbon Dioxide 26, Anion Gap 11, BUN 11, Creatinine 0.5 L, Est GFR ( Amer) > 60, Est GFR ( Non-Af Amer) > 60, Random Glucose 81, Calcium 8.9, Total Bilirubin 1.3, AST 50, ALT 49, Alkaline Phosphatase 90, Total Protein 5.6 L, Albumin 2.9 L, Globulin 2.7, Albumin/Globulin Ratio 1.0 L 01/16/18 12:00: WBC 4.0 L, RBC 3.41 L, Hgb 12.4 L, Hct 34.1 L, MCV 100.0, MCH 36.4 H, MCHC 36.4, RDW 14.2, Plt Count 96 L, MPV 10.5, Gran % 48.6 L, Lymph % ( Auto) 36.6 H, [place] % (Auto) 11.4 H, Eos % (Auto) 3.2, Baso % (Auto) 0.2, Gran # 1.96, Lymph # (Auto) 1.5, [place] # (Auto) 0.5, Eos # (Auto) 0.1, Baso # (Auto) 0.01 Vital Signs Temp Pulse Resp BP Pulse Ox 01/18/18 07:00 97.9 F 64 20 126/72 01/17/18 15:00 72 93/58 L 01/17/18 07:29 97.5 F L 63 20 104/68 01/16/18 16:00 98.1 F 69 16 118/71 96 01/16/18 14:17 98 F 60 18 110/60 98 01/16/18 13:00 64 16 110/65 98 01/16/18 11:30 98 F 68 18 105/64 97 Abnormal Lab Results 01/21/18 01/21/18 01/21/18 04:46 05:45 05:45 WBC 3.8 L RBC 3.79 Hgb 13.5 L Hct 37.5 L MCV 98.9 MCH 35.6 H MCHC 36.0 RDW 14.0 Plt Count 95 L MPV 9.8 Gran % 55.6 Lymph % (Auto) 30.9 [place] % (Auto) 10.0 H Eos % (Auto) 3.2 Baso % (Auto) 0.3 Gran # 2.11 Lymph # (Auto) 1.2 [place] # (Auto) 0.4 Eos # (Auto) 0.1 Baso # (Auto) 0.01 pCO2 pO2 HCO3 ABG pH ABG Total CO2 ABG O2 Saturation ABG O2 Content ABG Base Excess ABG Hemoglobin ABG Carboxyhemoglobin POC ABG HHb (Measured) ABG Methemoglobin ABG O2 Capacity Hgb O2 Saturation FiO2 Sodium 142 Potassium 4.1 Chloride 111 H Carbon Dioxide 27 Anion Gap 8 L BUN 17 Creatinine 0.5 L Est GFR ( Amer) > 60 Est GFR (Non-Af Amer) > 60 POC Glucose (mg/dL) 114 H Random Glucose 90 Calcium 9.4 Total Bilirubin 1.3 AST 37 ALT 35 Alkaline Phosphatase 87 Troponin I Total Protein 5.8 Albumin 2.9 L Globulin 2.9 Albumin/Globulin Ratio 1.0 L 01/21/18 01/21/18 05:59 08:15 WBC RBC Hgb Hct MCV MCH MCHC RDW Plt Count MPV Gran % Lymph % (Auto) [place] % (Auto) Eos % (Auto) Baso % (Auto) Gran # Lymph # (Auto) [place] # (Auto) Eos # (Auto) Baso # (Auto) pCO2 39 pO2 74.0 L HCO3 26.5 ABG pH 7.44 ABG Total CO2 27.7 ABG O2 Saturation 97.2 ABG O2 Content 17.6 ABG Base Excess 2.3 ABG Hemoglobin 13.3 ABG Carboxyhemoglobin 2.5 H POC ABG HHb (Measured) 2.7 ABG Methemoglobin 0.9 ABG O2 Capacity 18.1 Hgb O2 Saturation 93.8 L FiO2 21.0 Sodium Potassium Chloride Carbon Dioxide Anion Gap BUN Creatinine Est GFR ( Amer) Est GFR (Non-Af Amer) POC Glucose (mg/dL) Random Glucose Calcium Total Bilirubin AST ALT Alkaline Phosphatase Troponin I < 0.01 Total Protein Albumin Globulin Albumin/Globulin Ratio Temp Pulse Resp BP Pulse Ox 98.0 F 67 20 110/66 96 01/21/18 07:35 01/21/18 07:35 01/21/18 07:35 01/21/18 07:35 01/20/18 06:42 Laboratory Results - last 24 hr 01/22/18 07:20 Ammonia 121 H Temp Pulse Resp BP Pulse Ox 98.0 F 75 17 116/83 96 01/21/18 07:35 01/22/18 06:52 01/22/18 06:52 01/22/18 06:52 01/20/18 06:42 Temp Pulse Resp BP Pulse Ox 98.6 F 70 16 100/68 96 01/25/18 09:40 01/25/18 09:40 01/25/18 09:40 01/25/18 09:40 01/20/18 06:42 Abnormal Lab Results 01/27/18 01/27/18 01/27/18 05:00 07:00 07:00 WBC 4.9 D RBC 4.05 Hgb 14.5 Hct 39.0 L MCV 96.3 MCH 35.8 H MCHC 37.2 H RDW 13.3 Plt Count 94 L MPV 10.1 Gran % 55.9 Lymph % (Auto) 31.2 [place] % (Auto) 9.7 H Eos % (Auto) 3.0 Baso % (Auto) 0.2 Gran # 2.75 Lymph # (Auto) 1.5 [place] # (Auto) 0.5 Eos # (Auto) 0.2 Baso # (Auto) 0.01 Sodium 144 Potassium 4.0 Chloride 110 H Carbon Dioxide 27 Anion Gap 12 BUN 16 Creatinine 0.5 L Est GFR ( Amer) > 60 Est GFR (Non-Af Amer) > 60 Random Glucose 90 Calcium 9.8 Total Bilirubin 2.4 H AST 38 ALT 27 Alkaline Phosphatase 87 Ammonia Total Protein 6.8 Albumin 3.4 Globulin 3.4 Albumin/Globulin Ratio 1.0 L Valproic Acid 79 01/27/18 07:00 WBC RBC Hgb Hct MCV MCH MCHC RDW Plt Count MPV Gran % Lymph % (Auto) [place] % (Auto) Eos % (Auto) Baso % (Auto) Gran # Lymph # (Auto) [place] # (Auto) Eos # (Auto) Baso # (Auto) Sodium Potassium Chloride Carbon Dioxide Anion Gap BUN Creatinine Est GFR ( Amer) Est GFR (Non-Af Amer) Random Glucose Calcium Total Bilirubin AST ALT Alkaline Phosphatase Ammonia 116 H Total Protein Albumin Globulin Albumin/Globulin Ratio Valproic Acid Temp Pulse Resp BP Pulse Ox 98.8 F 82 20 118/80 96 01/27/18 07:44 01/27/18 07:44 01/27/18 07:44 01/27/18 07:44 01/20/18 06:42 Temp Pulse Resp BP Pulse Ox 98.4 F 83 20 106/71 96 01/28/18 07:24 01/28/18 07:24 01/28/18 07:24 01/28/18 07:24 01/20/18 06:42 DSM 5 Symptoms Update: Shortly pt is 58yo male with reported h/o schizoaffective disorder, denied previous psychiatric admissions, denied h/o suicidal attempts, pt was transferred from the [facility] for evaluation of agitated, aggressive, inappropriate behavior, pt was sexually disinhibited, was trying to kiss other consumers with no permission, was making sexual remarks, was breaking things, was not manageable in the NH. pt requires meds adjustment, observation. pt was seen and examined today in his room, initially pt was sleepy, this technical document writer needed to come back and reassess pt. pt was keep repeating "I want to go home, I want to go home". pt ate with good appetite, today was the first day when pt was not screaming or yelling. pt has disinhibited behavior, calling people names, but no agitation or aggression. as per staff yesterday pt was able to stay in community area for a few times and was not agitated, which gives impression that patient has some improvement with his presentation. pt is currently on 1:1 for fall precaution, confusion. DSM 5 Diagnosis: as per h/o schizoaffective disorder (most likely bipolar type) r/o frontotemporal dementia Medication Change: Yes (zoloft started) Medical Record Reviewed: Yes Consults ordered or reviewed: medical consult neurology consult will be called reason: pt is on Keppra, which could give aggression/agitation pt has h/o Hep C, hepatic encephalopathy this technical document writer would like to d/c keppra and initiate Depakote, but will it be safe for the pt? Neurology consultation appreciated pt was started on depakote keppra was d/c seroquel was decreased geodon if absolute necessary will monitor on liver enzymes 01/22/18 pt was seen by medical team, lactulose will be increased because of ammonia elevation discussed with medical policy specialist Mental Status Examination - Cognitive Function Orientation: Person, Situation, Time Memory: Impaired Attention: Poor Concentration: Poor Association: Loose Fund of Knowledge: Poor - Mood Mood: Other ("leave me alone") - Affect Affect: Flat (and irritable) - Speech Speech: Loud - Formal Thought Process Formal Thought Process: Delusions (of grandor), Paranoia - Suicidal Ideation Suicidal Ideation: No - Homicidal Ideation Homicidal Ideation: No Goal/Treatment Plan - Goal/Treatment Plan Need for Continued Stay: Remain at risks for inpatient hospitalization, Severe depression anxiety, Discharge may exacerbated symptoms, Severe functional impairment Progress Toward Problem(s) and Goals/Treatment Plan: milieu/structure/supportive therapy based on literature, zyprexa, zoloft and trazodone 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 trazodone increased, Zyprexa Zydis 5mg po tid, Zoloft 50mg daily geodon only if absolute need depakote 500mg po bid and hs mood stabilization depakote level 01/27/18 was 79 xanax 1mg po tid scheduled 1:1 for safety and falls ativan prn will monitor closely SW consultation for discharge plan and social issues Family involvement Follow up on labs Will monitor closely Pt was educated about risk/benefits and alternatives of medications, coping strategies (safety plan, suicide prevention), relapse prevention, importance of follow up with psychiatrist and therapist, stay away from drugs/alcohol/smoking will monitor closely Estimated Date of D/C: 02/01/18
[2018-01-28] MEDS ORDERED: OLANZapine 5 mg Disintegrating Tab PO SCH (22:00)
[2018-01-29] MEDS: Divalproex 500 mg DR(BID formulation) PO SCH ×3 (09:43→22:53)
[2018-01-29] MEDS: OLANZapine 5 mg Disintegrating Tab PO SCH ×2 (09:43→22:53)
--- NOTE | 2018-01-29 16:19 | PCM.PYCHPN ---
Psychiatric Progress Note - Psychiatric Progress Note Patient seen today, length of contact: 30min Patient Chief Complaint: "I want to go home, I want to go home" Problems Identified/Issues Discussed: Suicide/ homicide prevention, past psychiatric h/o, current psychiatric symptoms , medical problems, risk/benefits and alternatives of medications, medications compliance, coping strategies, substance abuse h/o, relapse prevention, importance of follow up with psychiatrist and therapist, discharge plan. Medical Problems: chronic hepatitis, htn, encephalopathy and seizure d/o. R/O FRONTOTEMPORAL DEMENTIA Diagnostic Results: 01/16/18 12:00 01/16/18 12:00 Lab Results 01/17/18 07:00: RPR Nonreactive 01/17/18 07:00: Free T4 0.85, TSH 3rd Generation 0.65 01/17/18 07:00: Fasting Glucose 75, Triglycerides 30 L, Cholesterol 96 L, LDL Cholesterol Direct 33, HDL Cholesterol 50 01/16/18 12:30: Urine Opiates Screen Negative, Urine Methadone Screen Negative, Ur Barbiturates Screen Negative, Ur Phencyclidine Scrn Negative, Ur Amphetamines Screen Negative, U Benzodiazepines Scrn Negative, U Oth Cocaine Metabols Negative, U Cannabinoids Screen Negative 01/16/18 12:30: Urine Color Yellow, Urine Appearance Clear, Urine pH 6.5, Ur Specific [place] 1.015, Urine Protein Negative, Urine Glucose (UA) Negative, Urine Ketones Negative, Urine Blood Negative, Urine Nitrate Negative, Urine Bilirubin Negative, Urine Urobilinogen 4.0 H, Ur Leukocyte Esterase Negative 01/16/18 12:00: Alcohol, Quantitative < 10 01/16/18 12:00: Salicylates < 1 L, Acetaminophen < 10.0 L 01/16/18 12:00: Sodium 143, Potassium 3.7, Chloride 110 H, Carbon Dioxide 26, Anion Gap 11, BUN 11, Creatinine 0.5 L, Est GFR ( Amer) > 60, Est GFR ( Non-Af Amer) > 60, Random Glucose 81, Calcium 8.9, Total Bilirubin 1.3, AST 50, ALT 49, Alkaline Phosphatase 90, Total Protein 5.6 L, Albumin 2.9 L, Globulin 2.7, Albumin/Globulin Ratio 1.0 L 01/16/18 12:00: WBC 4.0 L, RBC 3.41 L, Hgb 12.4 L, Hct 34.1 L, MCV 100.0, MCH 36.4 H, MCHC 36.4, RDW 14.2, Plt Count 96 L, MPV 10.5, Gran % 48.6 L, Lymph % ( Auto) 36.6 H, [place] % (Auto) 11.4 H, Eos % (Auto) 3.2, Baso % (Auto) 0.2, Gran # 1.96, Lymph # (Auto) 1.5, [place] # (Auto) 0.5, Eos # (Auto) 0.1, Baso # (Auto) 0.01 Vital Signs Temp Pulse Resp BP Pulse Ox 01/18/18 07:00 97.9 F 64 20 126/72 01/17/18 15:00 72 93/58 L 01/17/18 07:29 97.5 F L 63 20 104/68 01/16/18 16:00 98.1 F 69 16 118/71 96 01/16/18 14:17 98 F 60 18 110/60 98 01/16/18 13:00 64 16 110/65 98 01/16/18 11:30 98 F 68 18 105/64 97 Abnormal Lab Results 01/21/18 01/21/18 01/21/18 04:46 05:45 05:45 WBC 3.8 L RBC 3.79 Hgb 13.5 L Hct 37.5 L MCV 98.9 MCH 35.6 H MCHC 36.0 RDW 14.0 Plt Count 95 L MPV 9.8 Gran % 55.6 Lymph % (Auto) 30.9 [place] % (Auto) 10.0 H Eos % (Auto) 3.2 Baso % (Auto) 0.3 Gran # 2.11 Lymph # (Auto) 1.2 [place] # (Auto) 0.4 Eos # (Auto) 0.1 Baso # (Auto) 0.01 pCO2 pO2 HCO3 ABG pH ABG Total CO2 ABG O2 Saturation ABG O2 Content ABG Base Excess ABG Hemoglobin ABG Carboxyhemoglobin POC ABG HHb (Measured) ABG Methemoglobin ABG O2 Capacity Hgb O2 Saturation FiO2 Sodium 142 Potassium 4.1 Chloride 111 H Carbon Dioxide 27 Anion Gap 8 L BUN 17 Creatinine 0.5 L Est GFR ( Amer) > 60 Est GFR (Non-Af Amer) > 60 POC Glucose (mg/dL) 114 H Random Glucose 90 Calcium 9.4 Total Bilirubin 1.3 AST 37 ALT 35 Alkaline Phosphatase 87 Troponin I Total Protein 5.8 Albumin 2.9 L Globulin 2.9 Albumin/Globulin Ratio 1.0 L 01/21/18 01/21/18 05:59 08:15 WBC RBC Hgb Hct MCV MCH MCHC RDW Plt Count MPV Gran % Lymph % (Auto) [place] % (Auto) Eos % (Auto) Baso % (Auto) Gran # Lymph # (Auto) [place] # (Auto) Eos # (Auto) Baso # (Auto) pCO2 39 pO2 74.0 L HCO3 26.5 ABG pH 7.44 ABG Total CO2 27.7 ABG O2 Saturation 97.2 ABG O2 Content 17.6 ABG Base Excess 2.3 ABG Hemoglobin 13.3 ABG Carboxyhemoglobin 2.5 H POC ABG HHb (Measured) 2.7 ABG Methemoglobin 0.9 ABG O2 Capacity 18.1 Hgb O2 Saturation 93.8 L FiO2 21.0 Sodium Potassium Chloride Carbon Dioxide Anion Gap BUN Creatinine Est GFR ( Amer) Est GFR (Non-Af Amer) POC Glucose (mg/dL) Random Glucose Calcium Total Bilirubin AST ALT Alkaline Phosphatase Troponin I < 0.01 Total Protein Albumin Globulin Albumin/Globulin Ratio Temp Pulse Resp BP Pulse Ox 98.0 F 67 20 110/66 96 01/21/18 07:35 01/21/18 07:35 01/21/18 07:35 01/21/18 07:35 01/20/18 06:42 Laboratory Results - last 24 hr 01/22/18 07:20 Ammonia 121 H Temp Pulse Resp BP Pulse Ox 98.0 F 75 17 116/83 96 01/21/18 07:35 01/22/18 06:52 01/22/18 06:52 01/22/18 06:52 01/20/18 06:42 Temp Pulse Resp BP Pulse Ox 98.6 F 70 16 100/68 96 01/25/18 09:40 01/25/18 09:40 01/25/18 09:40 01/25/18 09:40 01/20/18 06:42 Abnormal Lab Results 01/27/18 01/27/18 01/27/18 05:00 07:00 07:00 WBC 4.9 D RBC 4.05 Hgb 14.5 Hct 39.0 L MCV 96.3 MCH 35.8 H MCHC 37.2 H RDW 13.3 Plt Count 94 L MPV 10.1 Gran % 55.9 Lymph % (Auto) 31.2 [place] % (Auto) 9.7 H Eos % (Auto) 3.0 Baso % (Auto) 0.2 Gran # 2.75 Lymph # (Auto) 1.5 [place] # (Auto) 0.5 Eos # (Auto) 0.2 Baso # (Auto) 0.01 Sodium 144 Potassium 4.0 Chloride 110 H Carbon Dioxide 27 Anion Gap 12 BUN 16 Creatinine 0.5 L Est GFR ( Amer) > 60 Est GFR (Non-Af Amer) > 60 Random Glucose 90 Calcium 9.8 Total Bilirubin 2.4 H AST 38 ALT 27 Alkaline Phosphatase 87 Ammonia Total Protein 6.8 Albumin 3.4 Globulin 3.4 Albumin/Globulin Ratio 1.0 L Valproic Acid 79 01/27/18 07:00 WBC RBC Hgb Hct MCV MCH MCHC RDW Plt Count MPV Gran % Lymph % (Auto) [place] % (Auto) Eos % (Auto) Baso % (Auto) Gran # Lymph # (Auto) [place] # (Auto) Eos # (Auto) Baso # (Auto) Sodium Potassium Chloride Carbon Dioxide Anion Gap BUN Creatinine Est GFR ( Amer) Est GFR (Non-Af Amer) Random Glucose Calcium Total Bilirubin AST ALT Alkaline Phosphatase Ammonia 116 H Total Protein Albumin Globulin Albumin/Globulin Ratio Valproic Acid Temp Pulse Resp BP Pulse Ox 98.8 F 82 20 118/80 96 01/27/18 07:44 01/27/18 07:44 01/27/18 07:44 01/27/18 07:44 01/20/18 06:42 Temp Pulse Resp BP Pulse Ox 98.4 F 83 20 106/71 96 01/28/18 07:24 01/28/18 07:24 01/28/18 07:24 01/28/18 07:24 01/20/18 06:42 DSM 5 Symptoms Update: Shortly pt is 58yo male with reported h/o schizoaffective disorder, denied previous psychiatric admissions, denied h/o suicidal attempts, pt was transferred from the [facility] for evaluation of agitated, aggressive, inappropriate behavior, pt was sexually disinhibited, was trying to kiss other consumers with no permission, was making sexual remarks, was breaking things, was not manageable in the NH. pt requires meds adjustment, observation. pt was seen and examined today in his room, initially pt was sleepy, but was able to participate in interview, patient presented by Idania vela that he was not screaming out loud, as per reports from the nursing staff patient had a good night sleep, multiple as needed medication was given to the patient. Later on patient was observed in the dining area, half sleep, but still screaming I want to go home, I want to go home" patient has disinhibited behavior, screaming , but no physical aggression. pt is currently on 1:1 for fall precaution, confusion. physical therapy was called for evaluation DSM 5 Diagnosis: as per h/o schizoaffective disorder (most likely bipolar type) r/o frontotemporal dementia Medication Change: Yes (Zyprexa decreased, benzodiazepines decreased) Medical Record Reviewed: Yes Mental Status Examination - Cognitive Function Orientation: Person, Situation, Time Memory: Impaired Attention: Poor Concentration: Poor Association: Loose Fund of Knowledge: Poor - Mood Mood: Other ("leave me alone") - Affect Affect: Flat (and irritable) - Speech Speech: Loud - Formal Thought Process Formal Thought Process: Delusions (of grandor), Paranoia - Suicidal Ideation Suicidal Ideation: No - Homicidal Ideation Homicidal Ideation: No Goal/Treatment Plan - Goal/Treatment Plan Need for Continued Stay: Remain at risks for inpatient hospitalization, Severe depression anxiety, Discharge may exacerbated symptoms, Severe functional impairment Progress Toward Problem(s) and Goals/Treatment Plan: milieu/structure/supportive therapy based on literature, zyprexa, zoloft and trazodone 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 trazodone increased, Zyprexa Zydis 5mg po amhs Zoloft 50mg daily geodon only if absolute need depakote 500mg po bid and hs mood stabilization depakote level 01/27/18 was 79 xanax 1mg po tid scheduled 1:1 for safety and falls ativan prn will monitor closely SW consultation for discharge plan and social issues Family involvement Follow up on labs Will monitor closely Pt was educated about risk/benefits and alternatives of medications, coping strategies (safety plan, suicide prevention), relapse prevention, importance of follow up with psychiatrist and therapist, stay away from drugs/alcohol/smoking will monitor closely Estimated Date of D/C: 02/01/18
[2018-01-30 07:21] VITALS: BP 94/51; PULSE 75; TEMP 98.2
[2018-01-30] MEDS: Divalproex 500 mg DR(BID formulation) PO SCH (09:46)
[2018-01-30] MEDS: OLANZapine 5 mg Disintegrating Tab PO SCH (09:47)
--- NOTE | 2018-01-31 17:04 | PCM.PYCHDC ---
Mental Status Examination - Mental Status Examination Orientation: Person Memory: Impaired (Patient has frontotemporal dementia) Mood: Neutral Affect: Constricted (and angry, but it is baseline) Speech: Slurred (slurred speech alternated with pressured speech and loud speech ), Pressured Attention: Poor (baseline) Concentration: Poor (baseline) Association: Loose (a baseline) Fund of Knowledge: Poor (baseline) Formal Thought Process: Delusions, Perservation Description of patient's judgement and insight: impaired, but seems to be chronic Psychotic Thoughts and Behaviors: disorganized, but chronic Suicidal Ideation: No Current Homicidal Ideation?: No Plan: denied Discharge Summary - Discharge Note Reason for Hospitalization: [place] was transferred from the [place] for evaluation of disinhibited behavior, inappropriate sexual behavior in NH, agitation, poor impulse control. Psychiatric History (includes Medical, Family, Personal Hx): see HPI Laboratory Data: 01/27/18 05:00 01/27/18 07:00 Lab Results 01/27/18 07:00: Ammonia 116 H 01/27/18 07:00: Sodium 144, Potassium 4.0, Chloride 110 H, Carbon Dioxide 27, Anion Gap 12, BUN 16, Creatinine 0.5 L, Est GFR ( Amer) > 60, Est GFR ( Non-Af Amer) > 60, Random Glucose 90, Calcium 9.8, Total Bilirubin 2.4 H, AST 38 , ALT 27, Alkaline Phosphatase 87, Total Protein 6.8, Albumin 3.4, Globulin 3.4 , Albumin/Globulin Ratio 1.0 L 01/27/18 07:00: Valproic Acid 79 01/27/18 05:00: WBC 4.9 D, RBC 4.05, Hgb 14.5, Hct 39.0 L, MCV 96.3, MCH 35.8 H , MCHC 37.2 H, RDW 13.3, Plt Count 94 L, MPV 10.1, Gran % 55.9, Lymph % (Auto) 31.2, [place] % (Auto) 9.7 H, Eos % (Auto) 3.0, Baso % (Auto) 0.2, Gran # 2.75, Lymph # (Auto) 1.5, [place] # (Auto) 0.5, Eos # (Auto) 0.2, Baso # (Auto) 0.01 01/25/18 09:00: Urine Color Dark yellow, Urine Appearance Clear, Urine pH 7.0, Ur Specific [place] 1.020, Urine Protein Negative, Urine Glucose (UA) Negative, Urine Ketones Trace H, Urine Blood Negative, Urine Nitrate Negative, Urine Bilirubin Small H, Urine Urobilinogen >=8.0, Ur Leukocyte Esterase Negative 01/24/18 07:30: Valproic Acid 35 L 01/22/18 07:20: Ammonia 121 H 01/22/18 07:20: 10-Hydroxycarbazepine 8.1 01/21/18 08:15: Troponin I < 0.01 01/21/18 05:59: pCO2 39, pO2 74.0 L, HCO3 26.5, ABG pH 7.44, ABG Total CO2 27.7 , ABG O2 Saturation 97.2, ABG O2 Content 17.6, ABG Base Excess 2.3, ABG Hemoglobin 13.3, ABG Carboxyhemoglobin 2.5 H, POC ABG HHb (Measured) 2.7, ABG Methemoglobin 0.9, ABG O2 Capacity 18.1, Hgb O2 Saturation 93.8 L, FiO2 21.0 01/21/18 05:45: Sodium 142, Potassium 4.1, Chloride 111 H, Carbon Dioxide 27, Anion Gap 8 L, BUN 17, Creatinine 0.5 L, Est GFR ( Amer) > 60, Est GFR ( Non-Af Amer) > 60, Random Glucose 90, Calcium 9.4, Total Bilirubin 1.3, AST 37, ALT 35, Alkaline Phosphatase 87, Total Protein 5.8, Albumin 2.9 L, Globulin 2.9 , Albumin/Globulin Ratio 1.0 L 01/21/18 05:45: WBC 3.8 L, RBC 3.79, Hgb 13.5 L, Hct 37.5 L, MCV 98.9, MCH 35.6 H, MCHC 36.0, RDW 14.0, Plt Count 95 L, MPV 9.8, Gran % 55.6, Lymph % (Auto) 30.9, [place] % (Auto) 10.0 H, Eos % (Auto) 3.2, Baso % (Auto) 0.3, Gran # 2.11, Lymph # (Auto) 1.2, [place] # (Auto) 0.4, Eos # (Auto) 0.1, Baso # (Auto) 0.01 01/21/18 04:46: POC Glucose (mg/dL) 114 H 01/19/18 09:50: Valproic Acid 26 L 01/17/18 07:00: RPR Nonreactive 01/17/18 07:00: Free T4 0.85, TSH 3rd Generation 0.65 01/17/18 07:00: Fasting Glucose 75, Triglycerides 30 L, Cholesterol 96 L, LDL Cholesterol Direct 33, HDL Cholesterol 50 01/16/18 12:30: Urine Opiates Screen Negative, Urine Methadone Screen Negative, Ur Barbiturates Screen Negative, Ur Phencyclidine Scrn Negative, Ur Amphetamines Screen Negative, U Benzodiazepines Scrn Negative, U Oth Cocaine Metabols Negative, U Cannabinoids Screen Negative 01/16/18 12:30: Urine Color Yellow, Urine Appearance Clear, Urine pH 6.5, Ur Specific [place] 1.015, Urine Protein Negative, Urine Glucose (UA) Negative, Urine Ketones Negative, Urine Blood Negative, Urine Nitrate Negative, Urine Bilirubin Negative, Urine Urobilinogen 4.0 H, Ur Leukocyte Esterase Negative 01/16/18 12:00: Alcohol, Quantitative < 10 01/16/18 12:00: Salicylates < 1 L, Acetaminophen < 10.0 L 01/16/18 12:00: Sodium 143, Potassium 3.7, Chloride 110 H, Carbon Dioxide 26, Anion Gap 11, BUN 11, Creatinine 0.5 L, Est GFR ( Amer) > 60, Est GFR ( Non-Af Amer) > 60, Random Glucose 81, Calcium 8.9, Total Bilirubin 1.3, AST 50, ALT 49, Alkaline Phosphatase 90, Total Protein 5.6 L, Albumin 2.9 L, Globulin 2.7, Albumin/Globulin Ratio 1.0 L 01/16/18 12:00: WBC 4.0 L, RBC 3.41 L, Hgb 12.4 L, Hct 34.1 L, MCV 100.0, MCH 36.4 H, MCHC 36.4, RDW 14.2, Plt Count 96 L, MPV 10.5, Gran % 48.6 L, Lymph % ( Auto) 36.6 H, [place] % (Auto) 11.4 H, Eos % (Auto) 3.2, Baso % (Auto) 0.2, Gran # 1.96, Lymph # (Auto) 1.5, [place] # (Auto) 0.5, Eos # (Auto) 0.1, Baso # (Auto) 0.01 Vital Signs Temp Pulse Resp BP Pulse Ox 01/30/18 07:20 98.2 F 75 20 94/51 L 01/29/18 15:00 81 119/68 01/29/18 07:11 96.8 F L 76 20 127/82 01/28/18 07:24 98.4 F 83 20 106/71 01/27/18 16:00 77 131/77 01/27/18 07:44 98.8 F 82 20 118/80 01/26/18 16:00 81 128/80 01/26/18 07:05 97.3 F L 74 20 129/84 01/25/18 09:40 98.6 F 70 16 100/68 01/24/18 07:23 98.5 F 77 20 98/64 L 01/23/18 16:00 85 127/73 01/23/18 07:22 97.9 F 74 20 125/79 01/22/18 16:00 76 130/76 01/22/18 06:52 75 17 116/83 01/21/18 07:35 98.0 F 67 20 110/66 01/20/18 16:25 75 100/73 01/20/18 06:42 97.1 F L 73 19 118/74 96 01/19/18 15:00 74 118/71 01/19/18 06:45 97.8 F 69 18 112/73 01/18/18 16:00 74 123/76 01/18/18 07:00 97.9 F 64 20 126/72 01/17/18 15:00 72 93/58 L 01/17/18 07:29 97.5 F L 63 20 104/68 01/16/18 16:00 98.1 F 69 16 118/71 96 01/16/18 14:17 98 F 60 18 110/60 98 01/16/18 13:00 64 16 110/65 98 01/16/18 11:30 98 F 68 18 105/64 97 Consultations:: List each consultation separately and include: 1. Reason for request. 2. Findings. 3. Follow-up Consultations: medical consult neurology consult will be called reason: pt is on Keppra, which could give aggression/agitation pt has h/o Hep C, hepatic encephalopathy this curriculum writer would like to d/c keppra and initiate Depakote, but will it be safe for the pt? Neurology consultation appreciated pt was started on depakote keppra was d/c seroquel was decreased geodon if absolute necessary will monitor on liver enzymes 01/22/18 pt was seen by medical team, lactulose will be increased because of ammonia elevation discussed with medical assisting program director Summary of Hospital Course include:: 1. Description of specific treatment plan utilized for patients during their course of treatmen. 2. Summarize the time- course for resolution of acute symptoms and/or regressed behaviors. 3. Describe issues identified and worked on during hospitalization. 4. Describe medication utilized. 5. Describe medical problems identified and treated. 6. Reassessment of suicide risk Summary of Hospital Course: Shortly pt is 58yo male with reported h/o schizoaffective disorder, denied previous psychiatric admissions, denied h/o suicidal attempts, pt was transferred from the [facility] for evaluation of agitated, aggressive, inappropriate behavior, pt was sexually disinhibited, was trying to kiss other consumers with no permission, was making sexual remarks, was breaking things, was not manageable in the [place]. pt requires meds adjustment, observation. as per report pt was making sexual remarks and using profanities, pt also was making racial remarks. 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 pt presented with acceptable personal hygiene, fair ADLs, walks independently. pt was oriented in self, date, but was not aware of the name of the hospital, but aware that he is in the hospital. pt obviously has difficulties to concentrate and stay focused, when was asked what brought pt to the hospital pt said "I was agitated, another kimberly said that f...k you and f...k your mother and f...k your father!", pt then said "I wanted to kill him", when pt was asked when it happened pt replied "5years ago", pt was not able to answer how it is related to the question he was asked. pt also was making sexual and racist remarks, but as per staff pt did not have any agitation or aggression. pt denied v/a/t hallucinations, but guarded. pt denied feeling depressed, denied thoughts of harming self or others. pt reported to have traumatic events in the past "I was in custodial so many times, too many to count". pt denied any flashbacks, reliving of situation. pt was grandiose, manic, sexually preoccupied. Past psych h/o: Pt. engages in psych. services with detention psychiatrist Dr. Aranda. No recent changes or adjustments in medications per detention GUILHERME Orantes. Pt. did not get a psych eval or see psychiatrist this week either. Pt. is a sub acute resident. 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 will be accepted back to the facility after speaking to DO Brittany from [facility]. Prior to detention admission pt. was homeless and referred by [facility]. Medical h/o: chronic hepatitis, htn, encephalopathy and seizure d/o. pt reported smoking 3-4 cigarettes, counseling provided, pt requested to be on nicotine patch. Family h/o: pt is not aware. 01/16/18 12:00 01/16/18 12:00 Lab Results 01/17/18 07:00: Free T4 0.85, TSH 3rd Generation 0.65 01/17/18 07:00: Fasting Glucose 75, Triglycerides 30 L, Cholesterol 96 L, LDL Cholesterol Direct 33, HDL Cholesterol 50 01/16/18 12:30: Urine Opiates Screen Negative, Urine Methadone Screen Negative, Ur Barbiturates Screen Negative, Ur Phencyclidine Scrn Negative, Ur Amphetamines Screen Negative, U Benzodiazepines Scrn Negative, U Oth Cocaine Metabols Negative, U Cannabinoids Screen Negative 01/16/18 12:30: Urine Color Yellow, Urine Appearance Clear, Urine pH 6.5, Ur Specific [place] 1.015, Urine Protein Negative, Urine Glucose (UA) Negative, Urine Ketones Negative, Urine Blood Negative, Urine Nitrate Negative, Urine Bilirubin Negative, Urine Urobilinogen 4.0 H, Ur Leukocyte Esterase Negative 01/16/18 12:00: Alcohol, Quantitative < 10 01/16/18 12:00: Salicylates < 1 L, Acetaminophen < 10.0 L 01/16/18 12:00: Sodium 143, Potassium 3.7, Chloride 110 H, Carbon Dioxide 26, Anion Gap 11, BUN 11, Creatinine 0.5 L, Est GFR ( Amer) > 60, Est GFR ( Non-Af Amer) > 60, Random Glucose 81, Calcium 8.9, Total Bilirubin 1.3, AST 50, ALT 49, Alkaline Phosphatase 90, Total Protein 5.6 L, Albumin 2.9 L, Globulin 2.7, Albumin/Globulin Ratio 1.0 L 01/16/18 12:00: WBC 4.0 L, RBC 3.41 L, Hgb 12.4 L, Hct 34.1 L, MCV 100.0, MCH 36.4 H, MCHC 36.4, RDW 14.2, Plt Count 96 L, MPV 10.5, Gran % 48.6 L, Lymph % ( Auto) 36.6 H, [place] % (Auto) 11.4 H, Eos % (Auto) 3.2, Baso % (Auto) 0.2, Gran # 1.96, Lymph # (Auto) 1.5, [place] # (Auto) 0.5, Eos # (Auto) 0.1, Baso # (Auto) 0.01 Vital Signs Temp Pulse Resp BP Pulse Ox 01/17/18 07:29 97.5 F L 63 20 104/68 01/16/18 16:00 98.1 F 69 16 118/71 96 01/16/18 14:17 98 F 60 18 110/60 98 01/16/18 13:00 64 16 110/65 98 01/16/18 11:30 98 F 68 18 105/64 97 patient was relatively stabilized on the following regimen: Zyprexa Zydis 5mg po amhs Zoloft 50mg daily geodon only if absolute need depakote 500mg po bid and hs mood stabilization depakote level 01/27/18 was 79 xanax 1mg po tid scheduled patient was calmer, does not have agitation or aggression, at the same time patient mental status with alternate only patient might be agitated versus status post medications with sedation. At the time of the discharge pt was calmer, pt will be following up with psychiatrist in [place], information about follow up appointment, time and address provided to the pt, it is [place] responsibility to provide pt with f/u appt with psychiatrist and PMD as well as specialists (see SW note for more detailed information). patient is to be seen by psychiatrist within 72 hours of discharge In case pt will need to obtain results of studies pending at discharge pt was provided with contact information of Psychiatric Inpatient unit [phone] as well as Medical Record Department [phone]. (please see medication reconciliation form for meds) Pt was educated about safety plan in case of worsening of symptoms or in case of suicidal or homicidal ideation call 911 or go to the nearest ER, also was educated to take meds as prescribed and stay away from drugs, pt verbalized understanding. Patient reached maximum effect from acute psychiatric hospitalization, deemed to be ready for discharge back to the detention. - Diagnosis (1) Fronto-temporal dementia Status: Acute - Final Diagnosis (DSM 5) Condition upon Discharge: STABLE Disposition: NURSING FACILITY MEDICAID CERT Follow-up Treatment Plan: At the time of the discharge pt was calmer, pt will be following up with psychiatrist in [place], information about follow up appointment, time and address provided to the pt, it is [place] responsibility to provide pt with f/u appt with psychiatrist and PMD as well as specialists (see SW note for more detailed information). patient is to be seen by psychiatrist within 72 hours of discharge In case pt will need to obtain results of studies pending at discharge pt was provided with contact information of Psychiatric Inpatient unit [phone] as well as Medical Record Department [phone]. (please see medication reconciliation form for meds) Pt was educated about safety plan in case of worsening of symptoms or in case of suicidal or homicidal ideation call 911 or go to the nearest ER, also was educated to take meds as prescribed and stay away from drugs, pt verbalized understanding. - Smoking Cessation Smoking Cessation Medication prescribed: No Reason for not providing: denies smoking
== END 2018-01-30 15:17 | DRG 430 ==
LOC: ED 11:13 → ERH 13:24 → PSYC 15:01
PROVIDERS: ADMIT Psychiatry & Neurology Psychiatry; ATTEND Psychiatry & Neurology Psychiatry
PROC: GZ3ZZZZ Medication Management (ICD-10-PCS; principal; 2018-01-16)
DX: F25.0 Schizoaffective disorder, bipolar type (principal); K72.90 Hepatic failure, unspecified without coma; J44.9 Chronic obstructive pulmonary disease, unspecified; B18.2 Chronic viral hepatitis C; I10 Essential (primary) hypertension; G40.909 Epilepsy, unspecified, not intractable, without status epilepticus; S80.211A Abrasion, right knee, initial encounter; W19.XXXA Unspecified fall, initial encounter; F17.210 Nicotine dependence, cigarettes, uncomplicated